=== PATIENT | female | born 1970 | race Caucasian/White ===

== ENCOUNTER 2016-09-27 23:37 | Inpatient (IN) | payer BC ==
[2016-09-28] MEDS ORDERED: Lactated Ringers 1,000 ML IV SCH (00:15)
--- NOTE | 2016-09-28 00:15 | EDM.PDOC ---
ED HPI GI/ABDOMINAL - General Chief Complaint: Abdominal Pain Stated Complaint: STOMACH PAIN Time Seen by Provider: 09/28/16 00:07 Source: Reports: Patient, Family, Old records, RN notes reviewed History Limitations: Reports: No limitations - History of Present Illness INITIAL COMMENTS - FREE TEXT/NARRATIVE: 45-year-old female presents emergency department for a complaint of abdominal pain mainly in the epigastric region she has a known history of Y. gastric bypass pain has been ongoing for the last 2 days denies any fever denies passing gas does have nausea and difficulty keeping any food or water down because of increased pain - Related Data Allergies/ADRs: Allergies Allergy/AdvReac Type Severity Reaction Status Date / Time amoxicillin [Amoxicillin] Allergy Unknown Fever Verified 09/27/16 23:52 meperidine HCl [From Demerol] AdvReac Unknown Nausea and Verified 09/27/16 23:52 Vomiting Home Meds: Home Meds Calcium Carbonate [Calcium] 500 mg PO BID PRN 02/29/16 [History] Cholecalciferol (Vitamin D3) [Vitamin D3] 1,000 unit PO BID 09/27/16 [History] Polyethylene Glycol 3350 [MiraLAX] 17 gm PO DAILY PRN 09/27/16 [History] Sucralfate 1 gm PO BID PRN 09/27/16 [History] Vitamin B Complex [B Complex] 1 tab PO DAILY 09/27/16 [History] Past Medical History Gastrointestinal History: Reports: Cholelithiasis, GERD KAI WHAKARURUHAU History: Reports: - Infectious Disease History Infectious Disease History: Reports: Chicken pox, Shingles - Past Surgical History GI Surgical History: Reports: Cholecystectomy, EGD Other GI Surgeries/Procedures: lap band to rny 2014 Female Surgical History: Reports: section Social & Family History - Tobacco Use Smoking Status *Q: Never Smoker - Caffeine Use Caffeine Use: Reports: Coffee, Energy drinks, Soda, Tea - Alcohol Use Days Per Week of Alcohol Use: 2 Number of Drinks Per Day: 4 Total Drinks Per Week: 8 - Recreational Drug Use Recreational Drug Use: No ED ROS GENERAL - Review of Systems Review Of Systems: See Below Constitutional: Denies: fever, chills Respiratory: Reports: No Symptoms Cardiovascular: Reports: No symptoms GI/Abdominal: Reports: Abdominal pain, Nausea. Denies: Constipation, Diarrhea, Flatus, Vomiting : Reports: no symptoms Musculoskeletal: Reports: no symptoms Skin: Reports: no symptoms Neurological: Reports: No Symptoms ED EXAM, GI/ABD - Physical Exam Exam: See Below Text/Narrative:: General: female, moderate discomfort secondary to abdominal pain, alert and oriented x3 HEENT: head is atraumatic normocephalic, eyes pupils equal round reactive to light and accommodation sclera clear no conjunctivitis appreciated. Ears tympanic membranes clear and tolentino landmarks and light reflex are present bilaterally canals are clear. Nose no septal deviation, nares are clear, no blood present. Mouth mucosa is moist and pink no erythema or exudate noted in soft palate, tongue is midline uvula is midline, dentition is intact. Neck: Supple no thyromegaly no tracheal deviation. Nodes: Cervical nodes subclavicular nodes nontender no palpable lymphadenopathy noted. Lungs: clear to auscultation bilaterally with symmetrical respirations, no adventitious noise appreciated. CV: Regular rate and rhythm S1 and S2 appreciated no murmurs rubs or gallops noted. Abdomen: Soft, markedly tender epigastric region, no palpable masses or organomegaly appreciated, no distention no guarding bowel sounds are present, . Neuro: Cranial nerves II through XII grossly intact Skin: Warm and dry, intact Extremities: No lower extremity edema appreciated, pedal pulse is +2. Course - Vital Signs Last Recorded V/S: Last Vital Signs Temp 97.6 F 09/28/16 00:04 Pulse 87 09/28/16 00:04 Resp 20 09/28/16 00:04 BP 167/120 H 09/28/16 00:04 Pulse Ox 97 09/28/16 00:04 - Orders/Labs/Meds Orders: Active Orders 24 hr Category Date Time Status Peripheral IV Care [RC] . DIRECTED Care 09/28/16 00:13 Active Abdomen Pelvis w Cont [CT] Urgent Exams 09/28/16 00:12 Ordered COMPREHENSIVE METABOLIC PN,CMP [CHEM] Urgent Lab 09/28/16 00:20 Received HCG QUALITATIVE,URINE [URCHEM] Routine Lab 09/28/16 00:12 Uncollected LACTIC ACID [CHEM] Urgent Lab 09/28/16 00:20 Received LIPASE [CHEM] Urgent Lab 09/28/16 00:20 Received UA W/MICROSCOPIC [URIN] Urgent Lab 09/28/16 00:12 Uncollected Iopamidol [Isovue-300 (61%)] Med 09/28/16 00:30 Active 150 ml IV . DIRECTED Lactated Ringers [Ringers, Lactated] 1,000 ml Med 09/28/16 00:15 Active IV ASDIRECTED Sodium Chloride 0.9% [Normal Saline] 80 ml Med 09/28/16 00:30 Active IV ASDIRECTED Sodium Chloride 0.9% [Saline Flush] Med 09/28/16 00:12 Active 10 ml FLUSH ASDIRECTED PRN Peripheral IV Insertion Adult [OM.PC] Urgent Oth 09/28/16 00:12 Ordered Medication Orders Lactated Ringer's (Ringers, Lactated) 1,000 mls @ 500 mls/hr IV ASDIRECTED OLIVIA Last Admin: 09/28/16 00:21 Dose: 500 mls/hr Sodium Chloride (Normal Saline) 80 mls @ 3 mls/sec IV ASDIRECTED OLIVIA Iopamidol (Isovue-300 (61%)) 150 ml IV . DIRECTED OLIVIA Stop: 09/28/16 00:31 Sodium Chloride (Saline Flush) 10 ml FLUSH ASDIRECTED PRN PRN Reason: Keep Vein Open Last Admin: 09/28/16 00:22 Dose: 10 ml Labs: Laboratory Tests 09/28/16 Range/Units 00:20 WBC 5.6 (4.5-11.0) K/uL RBC 4.09 (3.30-5.50) M/uL Hgb 11.3 L (12.0-15.0) g/dL Hct 35.3 L (36.0-48.0) % MCV 86 (80-98) fL MCH 28 (27-31) pg MCHC 32 (32-36) % Plt Count 231 (150-400) K/uL Neut % (Auto) 61 (36-66) % Lymph % (Auto) 27 (24-44) % [place] % (Auto) 11 H (2-6) % Eos % (Auto) 1 L (2-4) % Baso % (Auto) 0 (0-1) % Meds: Medications Generic Name Dose Route Start Last Admin Trade Name Freq PRN Reason Stop Dose Admin Lactated Ringer's 1,000 mls @ 500 mls/hr 09/28/16 00:15 09/28/16 00:21 Ringers, Lactated IV 500 mls/hr ASDIRECTED OLIVIA Administration Sodium Chloride 80 mls @ 3 mls/sec 09/28/16 00:30 Normal Saline IV ASDIRECTED OLIVIA Iopamidol 150 ml 09/28/16 00:30 Isovue-300 (61%) IV 09/28/16 00:31 . DIRECTED OLIVIA Sodium Chloride 10 ml 09/28/16 00:12 09/28/16 00:22 Saline Flush FLUSH 10 ml ASDIRECTED PRN Administration Keep Vein Open Discontinued Medications Generic Name Dose Route Start Last Admin Trade Name Freq PRN Reason Stop Dose Admin Hydromorphone HCl 1 mg 09/28/16 00:23 Dilaudid IVPUSH 09/28/16 00:24 ONETIME ONE Ondansetron HCl 4 mg 09/28/16 00:23 Zofran IVPUSH 09/28/16 00:24 ONETIME ONE Sodium Chloride 10 ml 09/28/16 00:22 Saline Flush FLUSH 09/28/16 00:23 ONETIME ONE Departure - Departure Time of Disposition: 00:27 Disposition: DC/Tfer to [facility] Condition: fair Clinical Impression: Drug-induced confusion, acute Forms: ED Department Discharge Additional Instructions: recommend stopping the fentanyl, stopping the hydrocodone, switch to pain control ibuprofen 4 times a day adding calcitonin nasal spray to help with compression fracture and pain relief, follow up with primary care in 3-5 days for reevaluation - My Orders Last 24 Hours: My Active Orders 09/28/16 00:12 Abdomen Pelvis w Cont [CT] Urgent HCG QUALITATIVE,URINE [URCHEM] Routine UA W/MICROSCOPIC [URIN] Urgent Sodium Chloride 0.9% [Saline Flush] 10 ml FLUSH ASDIRECTED PRN Peripheral IV Insertion Adult [OM.PC] Urgent 09/28/16 00:13 Peripheral IV Care [RC] . DIRECTED 09/28/16 00:15 Lactated Ringers [Ringers, Lactated] 1,000 ml IV ASDIRECTED 09/28/16 00:20 COMPREHENSIVE METABOLIC PN,CMP [CHEM] Urgent LACTIC ACID [CHEM] Urgent LIPASE [CHEM] Urgent 09/28/16 00:30 Iopamidol [Isovue-300 (61%)] 150 ml IV . DIRECTED Sodium Chloride 0.9% [Normal Saline] 80 ml IV ASDIRECTED - Assessment/Plan Last 24 Hours: My Active Orders 09/28/16 00:12 Abdomen Pelvis w Cont [CT] Urgent HCG QUALITATIVE,URINE [URCHEM] Routine UA W/MICROSCOPIC [URIN] Urgent Sodium Chloride 0.9% [Saline Flush] 10 ml FLUSH ASDIRECTED PRN Peripheral IV Insertion Adult [OM.PC] Urgent 09/28/16 00:13 Peripheral IV Care [RC] . DIRECTED 09/28/16 00:15 Lactated Ringers [Ringers, Lactated] 1,000 ml IV ASDIRECTED 09/28/16 00:20 COMPREHENSIVE METABOLIC PN,CMP [CHEM] Urgent LACTIC ACID [CHEM] Urgent LIPASE [CHEM] Urgent 09/28/16 00:30 Iopamidol [Isovue-300 (61%)] 150 ml IV . DIRECTED Sodium Chloride 0.9% [Normal Saline] 80 ml IV ASDIRECTED Plan: Assessment Acuity = acute Site and laterality = confusion with vague abdominal pain complicated by recent starting of narcotics including fentanyl Etiology = suspicious for narcotic side effect Manifestations = none Location of injury = home Lab values = CBC, CMP unremarkable CT scan shows no acute process Plan I did discuss values of CT and lab work with the family also concerned about starting fentanyl in somebody who is narcotic yazmin with the history of no bowel movement in 5 days increased confusion I believe this is related to medications therefore recommend stopping the fentanyl stopping the hydrocodone starting ibuprofen and calcitonin for her compression fractures follow up with primary care in 3-5 days for reevaluation son was in agreement with the plan all questions were answered, they were instructed to return to the emergency department or call for worsening symptoms. This note was dictated using [employer] voice recognition software please call with any questions.
[2016-09-28] MEDS ORDERED: Sodium Chloride 0.9% 10 ML Syringe FLUSH ONE (00:22)
[2016-09-28] MEDS: Sodium Chloride 0.9% 10 ML Syringe FLUSH PRN ×2 (00:22→00:51)
[2016-09-28] MEDS ORDERED: HYDROmorphone 1 MG/ML Syringe IVPUSH ONE ×2 (00:23→00:53)
[2016-09-28] MEDS ORDERED: Ondansetron 4 MG/2 ML SDV IVPUSH ONE (00:23)
[2016-09-28] MEDS ORDERED: Sodium Chloride 0.9% 80 ML IV SCH (00:30)
[2016-09-28] MEDS ORDERED: Iopamidol 612 MG/ML 150 ML Bottle IV SCH (00:30)
[2016-09-28] MEDS ORDERED: fentaNYL 100 MCG/2 ML SDV IVPUSH ONE (01:50)
[2016-09-28] MEDS ORDERED: fentaNYL 100 MCG/2 ML SDV IVPUSH PRN ×2 (02:32→14:22)
[2016-09-28] MEDS: Dextrose 5%-Lactated Ringers 1,000 ML IV SCH ×3 (02:48→23:43)
[2016-09-28] MEDS: Ondansetron 4 MG/2 ML SDV IVPUSH PRN ×2 (02:50→07:12)
[2016-09-28] MEDS ORDERED: Pantoprazole 40 MG Vial IVPUSH SCH (03:00)
--- NOTE | 2016-09-28 08:53 | PCM.HP ---
H&P History of Present Illness - General Date of Service: 09/28/16 Admit Problem/Dx: Admission Diagnosis/Problem Admission Diagnosis/Problem Small bowel obstruction Source of Information: Patient History Limitations: Reports: No limitations - History of Present Illness Initial Comments - Free Text/Narative: Angelica states she started to have pain and constipation on 10/01/16 Her symptoms increasing have gotten worse. She states pain is in the mid abdomen and radiates through to her back. Associated with nausea. Aggravated by eating. Last night she had no relief of the pain and came to the ED Onset of Symptoms: Reports: gradual Duration of Symptoms: Reports: Day(s):, Getting worse Location: Reports: abdomen Quality: Reports: Sharp, Stabbing Severity: severe Improves with: Reports: None (until she had 2 doses of Dilaudid IV and 1 dose of Fentanyl) Worsens with: Reports: Eating Context: Reports: sick contact Associated Symptoms: Reports: loss of appetite (constipation and nausea) abd Pain Score (Numeric/FACES): 3 - Related Data Allergies/Adverse Reactions: Allergies Allergy/AdvReac Type Severity Reaction Status Date / Time amoxicillin [Amoxicillin] Allergy Unknown Fever Verified 09/27/16 23:52 meperidine HCl [From Demerol] AdvReac Unknown Nausea and Verified 09/27/16 23:52 Vomiting Home Medications: Home Meds Calcium Carbonate [Calcium] 500 mg PO BID PRN 02/29/16 [History] Cholecalciferol (Vitamin D3) [Vitamin D3] 1,000 unit PO BID 09/27/16 [History] Polyethylene Glycol 3350 [MiraLAX] 17 gm PO DAILY PRN 09/27/16 [History] Sucralfate 1 gm PO BID PRN 09/27/16 [History] Vitamin B Complex [B Complex] 1 tab PO DAILY 09/27/16 [History] Past Medical History Gastrointestinal History: Reports: Cholelithiasis, GERD [employer]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: - Infectious Disease History Infectious Disease History: Reports: Chicken pox, Shingles - Past Surgical History GI Surgical History: Reports: Cholecystectomy, EGD Other GI Surgeries/Procedures: lap band to rny 2014 Female Surgical History: Reports: section Social & Family History - Tobacco Use Smoking Status *Q: Never Smoker - Caffeine Use Caffeine Use: Reports: Coffee, Energy drinks, Soda, Tea - Alcohol Use Days Per Week of Alcohol Use: 2 Number of Drinks Per Day: 4 Total Drinks Per Week: 8 - Recreational Drug Use Recreational Drug Use: No H&P Review of Systems - Review of Systems: Review Of Systems: See Below General: Reports: fatigue HEENT: Reports: no symptoms Pulmonary: Reports: No Symptoms Cardiovascular: Reports: no symptoms Gastrointestinal: Reports: Abdominal pain, Constipation Genitourinary: Reports: no symptoms Musculoskeletal: Reports: no symptoms Skin: Reports: no symptoms Psychiatric: Reports: no symptoms Neurological: Reports: No Symptoms Hematologic/Lymphatic: Reports: no symptoms Immunologic: Reports: no symptoms Exam - Exam Exam: See Below - Vital Signs Vital Signs: Last Vital Signs Temp 97.9 F 09/28/16 07:44 Pulse 87 09/28/16 07:44 Resp 18 09/28/16 07:44 BP 138/99 H 09/28/16 07:44 Pulse Ox 96 09/28/16 03:05 Weight: 185 lb 10.067 oz - Exam Quality Assessment: DVT prophylaxis General: moderate distress HEENT: PERRLA Neck: supple, trachea midline Lungs: Clear to auscultation, Normal respiratory effort Cardiovascular: regular rate, regular rhythm Abdomen: guarding, tenderness (mid abdominal area ) (Female) Exam: Deferred Rectal (Female) Exam: Deferred Back Exam: normal inspection Extremities: normal inspection Skin: warm, dry, intact Neurological: cranial nerves intact Neuro Extensive - Mental Status: oriented x3 Neuro Extensive - Motor, Sensory, Reflexes: CN II-XII intact Psychiatric: normal affect (for having pain ) - Patient Data Result Diagrams: 09/28/16 00:20 09/28/16 00:20 *Q Meaningful Use (ADM) - VTE *Q VTE Criteria *Q: - Stroke *Q Stroke Criteria *Q: - AMI *Q AMI Criteria *Q: Problem List Initiated/Reviewed/Updated: Yes Orders Last 24hrs: Active Orders 24 hr Category Date Time Status Admission Status [Patient Status] [ADT] Routine ADT 09/28/16 02:00 Active Activity as Tolerated [RC] .Routine Care 09/28/16 02:31 Active Intake and Output [RC] ASDIRECTED Care 09/28/16 02:35 Active Notify Provider Consults [RC] ASDIRECTED Care 09/28/16 07:35 Active Vital Signs [RC] PER UNIT ROUTINE Care 09/28/16 02:31 Active Consult to Physician [CONS] Urgent Cons 09/28/16 07:34 Ordered Nothing per Oral Now Diet [DIET] Diet 09/28/16 Breakfast Active Dextrose 5%-Lactated Ringers 1,000 ml Med 09/28/16 02:45 Active IV ASDIRECTED Ondansetron [Zofran] Med 09/28/16 02:32 Active 4 mg IVPUSH Q4H PRN Pantoprazole [Protonix IV] Med 09/28/16 03:00 Active 40 mg IVPUSH Q24H fentaNYL [Sublimaze] Med 09/28/16 02:32 Active 100 mcg IVPUSH Q4H PRN Sequential Compression Device [OM.PC] Routine Oth 09/28/16 02:35 Ordered Medication Orders Fentanyl (Sublimaze) 100 mcg IVPUSH Q4H PRN PRN Reason: Pain Dextrose/Lactated Ringer's (Dextrose 5%-Lactated Ringers) 1,000 mls @ 100 mls/ hr IV ASDIRECTED [facility] Last Admin: 09/28/16 02:48 Dose: 100 mls/hr Ondansetron HCl (Zofran) 4 mg IVPUSH Q4H PRN PRN Reason: Nausea/Vomiting Last Admin: 09/28/16 07:12 Dose: 4 mg Admin: 09/28/16 02:50 Dose: 4 mg Pantoprazole Sodium (Protonix Iv) 40 mg IVPUSH Q24H [facility] Last Admin: 09/28/16 02:55 Dose: 40 mg Assessment/Plan Comment:: Partial Small Bowel Obstruction Plan: Admit to hospital as inpatient See copy of orders. Say Moralez was consulted by phone and briefed on patient at 6:47 am Patient will have surgery with expected hospital stay 2 nighs and 3 days Candis Niño
[2016-09-28] MEDS ORDERED: fentaNYL 250 MCG/5 ML SDV ONE ×2 (12:34→13:38)
[2016-09-28] MEDS ORDERED: Dexamethasone 4 MG/ML SDV ONE (12:34)
[2016-09-28] MEDS ORDERED: Neostigmine Methylsulfate 1 MG/ML 5 ML Syringe ONE (12:34)
[2016-09-28] MEDS ORDERED: Midazolam 1 MG/ML 2 ML SDV ONE (12:34)
[2016-09-28] MEDS ORDERED: Succinylcholine/Normal Saline 200 MG/10 ML Syringe ONE (12:34)
[2016-09-28] MEDS ORDERED: Rocuronium 50 MG/5 ML Vial ONE (12:34)
[2016-09-28] MEDS ORDERED: Propofol 200 MG/20 ML SDV ONE (12:34)
[2016-09-28] MEDS ORDERED: Ondansetron 4 MG/2 ML SDV ONE (12:34)
[2016-09-28] MEDS ORDERED: Bupivacaine 0.5%/EPINEPHrine 1:200,000 50 ML MDV ONE (12:41)
[2016-09-28] MEDS ORDERED: Ketorolac 60 MG/2 ML SDV ONE (12:50)
--- NOTE | 2016-09-28 12:54 | CONS ---
DATE OF SERVICE: 09/28/2016 REFERRING PHYSICIAN: CONSULTING PHYSICIAN: Say Moralez MD REASON FOR CONSULTATION: Evaluation of abdominal pain. HISTORY: This is a 45-year-old female with approximately 1-week history of abdominal pain. This started around Saturday to Saturday. The pain is not intensified but remains a 1/10 to 2/10. This has resulted in some recent constipation. The patient had a laparoscopic band placed initially, and this was converted to a Claudio-en-Y in 06/2014. The patient underwent recent EGD, was apparent though, but has done well aside from these two events. PAST MEDICAL HISTORY: Significant only for morbid obesity. PAST SURGICAL HISTORY: Claudio-en-Y as described above, x2, lap-jania. SOCIAL HISTORY: She is not a smoker. FAMILY HISTORY: No family history of colorectal cancer or anything else of concern. REVIEW OF SYSTEMS: GENERAL: The patient has been doing well/from this recent episode. HEENT: No symptoms. CARDIOVASCULAR: No history of myocardial infarction. RESPIRATORY: No shortness of breath. GASTROINTESTINAL: As above. GENITOURINARY: No dysuria. NEUROLOGIC: No symptoms. PSYCHIATRIC: No symptoms. The remainder of review of systems reviewed and is negative. PHYSICAL EXAMINATION: VITAL SIGNS: Stable. GENERAL: The patient is resting quite comfortably. Is very appropriate for her condition. HEENT: Pupils are equal. NECK: Supple. CARDIOVASCULAR: Regular rhythm and rate. RESPIRATORY: Lungs are clear to auscultation bilaterally. ABDOMEN: Very minimal pain with palpation. No rebound. No guarding. No distention. Very mild pain in mid abdomen with deep palpation. LABORATORY RESULTS: Show a normal white blood cell count, hemoglobin 11.3. Basic metabolic panel is essentially normal. IMAGING: I did review the CT scan, which suggest the possibility of an internal hernia versus slight torsion of her mesentery. This does not show any evidence of ischemia, did not show any abnormal flow, did not show any evidence of bowel obstruction. ASSESSMENT AND PLAN: Abdominal pain. The patient was taken to the operating room for a diagnostic laparoscopy, possible reduction of her internal hernia. We also discussed the possibility of open surgery, bowel resection, and now is not listed here. The patient understands this plan. We also discussed the risks, benefits, alternatives, and limitations, including, but not limited to infection, bleeding, perforation, leaks, and other risks not listed here. Say Moralez MD /[id number]
[2016-09-28] MEDS ORDERED: metroNIDAZOLE/Normal Saline 500 MG in Premix Bag 1 BAG IV ONE (13:00)
[2016-09-28] MEDS ORDERED: Ciprofloxacin in D5W 400 MG in Premix Bag 1 BAG IV ONE ×2 (13:00)
[2016-09-28] MEDS ORDERED: Lactated Ringers 1,000 ML ONE (13:08)
[2016-09-28] MEDS ORDERED: diphenhydrAMINE 50 MG/ML SDV IVPUSH PRN (14:19)
[2016-09-28] MEDS ORDERED: Acetaminophen/oxyCODONE 325-10 MG Tab PO PRN (14:19)
[2016-09-28] MEDS ORDERED: Benzocaine/Cetylpyridinium/Menthol Lozenge MUCMEM PRN (14:19)
[2016-09-28] MEDS ORDERED: Docusate Sodium 100 MG Cap PO PRN (14:19)
[2016-09-28] MEDS ORDERED: Zolpidem 5 MG Tab PO PRN (14:19)
[2016-09-28] MEDS ORDERED: hydrOXYzine HCl 50 MG/ML SDV IM PRN (14:27)
[2016-09-29 06:22] VITALS: BP 128/68
[2016-09-29] MEDS ORDERED: Pantoprazole 40 MG Tab.CR PO SCH (09:00)
[2016-09-29] MEDS ORDERED: Enoxaparin 40 MG/0.4 ML Syringe SUBCUT SCH (09:00)
--- NOTE | 2016-09-29 10:11 | PN ---
DATE OF SERVICE: 09/29/2016 SUBJECTIVE: The patient is doing very well today. Pain is well controlled. No nausea, vomiting, shortness of breath, or chest pain. She is passing a large amount of gas. OBJECTIVE: VITAL SIGNS: Temperature is 98.8, blood pressure 128/68, pulse 64, respirations 16, and O2 sats 97% on room air. CARDIOVASCULAR: Regular rhythm and rate. RESPIRATORY: Lungs clear to consultation bilaterally. ABDOMEN: Bowel sounds positive. Incision is healing well. No rebound or guarding. LABORATORY RESULTS: Show normal white blood cell count and normal basic metabolic panel. ASSESSMENT: Status post repair of internal hernia. PLAN: The patient will be discharged today. Please see discharge instructions for further details. Say Moralez MD /[id number]
--- NOTE | 2016-09-29 10:23 | DISCH ---
DISCHARGE DIAGNOSIS: Status post internal hernia repair, laparoscopic. SUMMARY OF HOSPITAL COURSE: This is a pleasant 45-year-old female, who was seen in the emergency room, was noted to have an internal hernia. This was diagnosed via CT scan. The patient on 09/28/2016 underwent a laparoscopic repair of internal hernia. This went well. On postoperative day one, the patient's pain is well controlled on ibuprofen only. No nausea, vomiting, shortness of breath, or chest pain. She is passing gas and request to be discharged. FOLLOWUP: Follow up with Surgery in 7 to 14 days. DISCHARGE INSTRUCTIONS: She is to return to the emergency room if she develops any signs and symptoms of leaks or other complications, which we did review. DISCHARGE MEDICATIONS: The patient is taking ibuprofen only and she will be discharged with this or pain medication. ACTIVITY: As tolerated, except no lifting greater than 30 pounds times 30 days.
--- NOTE | 2016-10-01 13:15 | OR ---
DATE OF PROCEDURE: 09/28/2016 PROCEDURE: 1. Reduction of internal hernia (66099). 2. Closure of mesenteric defect (66630). COMPLICATION: None. COTTON CLEANER: None. FINDINGS: Internal hernia due to previous gastric bypass surgery. ANESTHESIA: General/local. PREOPERATIVE DIAGNOSIS: Internal hernia. POSTOPERATIVE DIAGNOSIS: Internal hernia. Risks, benefits, alternatives, and limitations, including, but not to infection, bleeding, perforation to abdominal structures, fistula formation, requirement for open surgery, abscess formation, and other risks were explained to the patient and wished to proceed. PROCEDURE IN DETAIL: The patient was placed in supine position slightly to the right of the midline and about the level of the umbilicus. A 12 mm incision was made. A Veress needle was used to enter the abdomen without abnormality. A drop test was performed without abnormality. The abdomen was insufflated without difficulty. This was then followed by an Optiview trocar. An additional 10 and a 5 mm ports were then entered under direct visualization. The bowel was then ran in a retrograde fashion from the ileocecal valve. This allowed decompression of the internal hernia. The bowel itself was noted to have lymphatic congestion. However, there was no evidence of ischemia or necrosis. After the reduction of internal hernia, the bowel significantly improved. One this was reduced, the bowel was run in its entirety a second time. No other abnormalities noted. The mesenteric defect was readily identified. This was then closed with interrupted Tycron sutures. A 10 mm Tisseel was also placed within the defect. There were also two areas of serosal tear during this process. These were approximated in a Heineke-Mikulicz type fashion using interrupted Tycron sutures. Of note, this was not full thickness rent or the defect. This was felt due to the sofy noted on one of the clamps. After this, the rest of the abdomen was inspected without abnormality. The air was removed. The wounds were closed with 3-0 Vicryl and 4-0 Vicryl, around in an interrupted and running fashion after Dermabond and after thorough irrigation. Dermabond was applied. The patient tolerated the procedure well. Local anesthetic of 50 mL injected to the wounds. Say Moralez MD /[id number]
== END 2016-09-29 10:11 | disposition home or self-care (01) | DRG 227 ==
LOC: JP.ED 23:37 → JP.ICU 09-28 02:00
PROVIDERS: ADMIT Physician Assistant Medical; ATTEND Physician Assistant Medical
PROC: 0WQF4ZZ Repair Abdominal Wall, Percutaneous Endoscopic Approach (ICD-10-PCS; principal; 2016-09-28)
PROC: 0DQV4ZZ Repair Mesentery, Percutaneous Endoscopic Approach (ICD-10-PCS; principal; 2016-09-28)
DX: K46.9 Unspecified abdominal hernia without obstruction or gangrene (principal); Z98.84 Bariatric surgery status; Z98.0 Intestinal bypass and anastomosis status; Z88.1 Allergy status to other antibiotic agents; Z88.8 Allergy status to other drugs, medicaments and biological substances; K92.89 Other specified diseases of the digestive system
CPT/HCPCS: 36415; 74177; 80048; 80053; 81001; 81025; 83605; 83690; 85025; 96361; 96374; 96375; 96376; 99285-25; C9113; J0744; J1100; J1170; J1885; J2250; J2405; J2704; J3010; J3410; J7030; J7042; J7050; J7120

== ENCOUNTER 2016-11-23 15:27 | Inpatient (IN) | payer BC ==
[2016-11-23] MEDS ORDERED: Naloxone 0.4 MG/ML SDV IV PRN (15:43)
[2016-11-23] MEDS ORDERED: HYDROmorphone/Normal Saline 15 MG/30 ML PCA IV PRN (15:43)
[2016-11-23] MEDS ORDERED: Ondansetron 4 MG/2 ML SDV IVPUSH PRN (15:46)
[2016-11-23] MEDS ORDERED: MVI, Adult with Vitamin K 10 ML, Chromium/Copper/Mang/Selen/Zn 1 ML, Thiamine 100 MG in... IV ONE ×4 (17:00)
[2016-11-23] MEDS: Pantoprazole 40 MG Vial IV SCH (17:28)
[2016-11-23] MEDS: Dextrose 5%-Lactated Ringers 1,000 ML IV SCH (20:24)
[2016-11-23] MEDS ORDERED: Scopolamine 1.5 MG Transdermal Patch TRDERM SCH (20:30)
[2016-11-23] MEDS ORDERED: Prochlorperazine 10 MG in Sodium Chloride 0.9% 50 ML IV PRN (20:34)
[2016-11-24] MEDS: Dextrose 5%-Lactated Ringers 1,000 ML IV SCH ×2 (04:34→14:06)
[2016-11-24] MEDS ORDERED: Bupivacaine 0.5%/EPINEPHrine 1:200,000 50 ML MDV ONE (05:49)
[2016-11-24] MEDS ORDERED: Meropenem 500 MG SDV ONE (05:49)
[2016-11-24] MEDS ORDERED: fentaNYL/Normal Saline 600 MCG/30 ML PCA Vial IV SCH (06:30)
[2016-11-24] MEDS ORDERED: fentaNYL 250 MCG/5 ML SDV ONE (07:19)
[2016-11-24] MEDS ORDERED: Midazolam 1 MG/ML 2 ML SDV ONE (07:19)
[2016-11-24] MEDS ORDERED: Ondansetron 4 MG/2 ML SDV ONE (07:20)
[2016-11-24] MEDS ORDERED: Rocuronium 50 MG/5 ML Vial ONE (07:20)
[2016-11-24] MEDS ORDERED: Succinylcholine/Normal Saline 200 MG/10 ML Syringe ONE (07:20)
[2016-11-24] MEDS ORDERED: Propofol 200 MG/20 ML SDV ONE (07:20)
[2016-11-24] MEDS ORDERED: Dexamethasone 4 MG/ML SDV ONE (07:20)
[2016-11-24] MEDS ORDERED: Neostigmine Methylsulfate 1 MG/ML 5 ML Syringe ONE (07:20)
[2016-11-24] MEDS ORDERED: cefOXitin 2 GM in Sodium Chloride 0.9% 50 ML IV ONE (08:00)
[2016-11-24] MEDS ORDERED: VERIFY SCOP PATCH TOP SCH (09:00)
[2016-11-24] MEDS ORDERED: Lactated Ringers 1,000 ML ONE (09:21)
[2016-11-24] MEDS ORDERED: hydrOXYzine HCl 50 MG/ML SDV IM ONE (09:50)
[2016-11-24] MEDS ORDERED: hydrOXYzine HCl 50 MG/ML SDV IM PRN (10:50)
[2016-11-24] MEDS ORDERED: Labetalol 20 MG/4 ML Syringe IVPUSH PRN (10:50)
[2016-11-24] MEDS ORDERED: Metoclopramide 10 MG/2 ML SDV IV PRN (10:54)
[2016-11-24] MEDS ORDERED: diphenhydrAMINE 50 MG/ML SDV IV PRN (10:55)
[2016-11-24] MEDS ORDERED: Iron Sucrose Complex 500 MG in Sodium Chloride 0.9% 250 ML IV ONE (14:00)
[2016-11-24] MEDS: cefOXitin 2 GM in Sodium Chloride 0.9% 50 ML IV SCH ×2 (14:11→19:43)
[2016-11-24] MEDS ORDERED: MVI, Adult with Vitamin K 10 ML, Thiamine 200 MG, Chromium/Copper/Mang/Selen/Zn 1 ML in... IV SCH ×4 (16:00)
[2016-11-24] MEDS: Heparin Sodium 5,000 Units/ML Vial SUBCUT SCH (18:06)
[2016-11-24] MEDS: Pantoprazole 40 MG Vial IV SCH (18:06)
[2016-11-25] MEDS: Dextrose 5%-Lactated Ringers 1,000 ML IV SCH (00:36)
[2016-11-25] MEDS ORDERED: Iohexol 647 MG/ML 50 ML SDV PO SCH (01:30)
[2016-11-25] MEDS: cefOXitin 2 GM in Sodium Chloride 0.9% 50 ML IV SCH (01:47)
[2016-11-25] MEDS ORDERED: Iron Sucrose Complex 500 MG in Sodium Chloride 0.9% 250 ML IV ONE (05:00)
[2016-11-25] MEDS: Heparin Sodium 5,000 Units/ML Vial SUBCUT SCH (05:22)
[2016-11-25 07:22] VITALS: BP 142/87
[2016-11-25] MEDS ORDERED: Acetaminophen/oxyCODONE 325-5 MG Tab PO PRN (07:58)
[2016-11-26] MEDS ORDERED: Cyanocobalamin (Vitamin B12) 1,000 MCG/ML SDV IM ONE (09:00)
--- NOTE | 2016-11-26 09:39 | CR ---
UGI wo KUB HISTORY: eval rev JJ, resect. volvulus FINDINGS: Limited upper GI series was obtained without fluoroscopy. Water-soluble contrast was admin istered orally. Immediate along with 15 minute delayed images were obtained. Small gastric pouch is demonstrated. Contrast passes readily through the gastrojejunostomy into loops of jejunum. No obstru ction is identified. There is no contrast extravasation. Surgical clips are noted right upper quadra nt consistent with prior cholecystectomy. IMPRESSION: No postoperative complication is identified. No contrast extravasation or signs of obstr uction.
--- NOTE | 2016-11-27 13:15 | HP ---
The patient will be admitted to [facility]. ADMISSION DIAGNOSES: 1. Partial small bowel obstruction. 2. Status post Claudio-en-Y gastric bypass surgery, 07/02/2014. 3. Unspecified surgical malabsorption. 4. B12 deficiency. CURRENT MEDICATIONS: Multivitamin one a day, Womens Petites. ALLERGIES: DEMEROL, WHICH CAUSES NAUSEA AND VOMITING, AND AMOXICILLIN. PAST MEDICAL HISTORY: Esophageal reflux, SP lap band with intolerance. PAST SURGICAL HISTORY: Laparoscopic lap band 02/28/2007 at [place]. Consult weight 292. Claudio-en-Y gastric bypass surgery with removal of lap band on 07/02/2014. Laparoscopic reduction of internal hernia and closure of mesenteric defect, date of surgery 09/28/2016, Say Moralez MD. Cholecystectomy and section. SOCIAL HISTORY: Smoking, not applicable. Caffeine, drinks coffee. Energy drinks, soda and tea. Alcohol, drinks 2-3 glasses of wine three times a week. Recreational drugs, negative. 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 Children, two daughters. FAMILY HISTORY: Positive for obesity and negative for any heart, lungs, or kidney diseases. REVIEW OF SYSTEMS: Reports weight loss of 48.6 pounds since her Claudio-en-Y gastric bypass surgery, and for a total of 110.6 pounds since her lap band in 2006. She has had no fever, chills, night sweats, or fatigue. Eyes; negative, wears corrective lenses for nearsightedness. HEENT: Negative. CARDIOVASCULAR: No chest pain, murmur, fast or irregular heart beat. LUNGS: No shortness of breath or cough. MUSCULOSKELETAL: No joint pain or swelling. SKIN AND BREASTS: Negative. NEURO: No headaches, dizziness, loss of coordination. PSYCHIATRIC: Negative for anxiety, depression, or insomnia. ENDOCRINE: No fatigue, excessive thirst or urination. HEMOLYTIC/LYMPHATIC: No abnormal bleeding, bruising, or lymph node enlargement. Remainder of review of systems negative for any pertinent positives and negatives. CHIEF COMPLAINT: Angelica reports on Saturday11/16/2016, she developed low back pain. The next day, she ate solid food. She said the pain was in her midepigastric area. It radiated around her back. She reports this lasted for 2 hours. She had to lay down in a position. The pain was a 10/10. It was associated with burping. She states she has to strain to have bowel movements. They are in small amounts, but soft; pain is sharp, stabbing, squeezing, and twisting. She did not eat any solid foods from 11/18 till 11/21 and she ate a little bit on 11/21/2016. She developed another attack states where she had to puller over on the side of the road until it passed. She states that it will be associated with nausea, but she is unable to throw up after her Claudio-en-Y gastric bypass surgery, she will burp per frequently and become quite bloated. REVIEW OF SYSTEMS: Remainder of review of systems negative for any pertinent positives and negatives. OBJECTIVE: GENERAL: Angelica Ward is a 45-year-old female. Pale in no acute distress. VITAL SIGNS: TPR 98.3, 78, 16, and blood pressure 122/78. Height 64.1 inches, weight 181.4, pain scale 1 to 10 as a 2/10. BMI 31.04, total weight loss is 110.6. HEENT: Pupils equal, round, and reactive to light and accommodation. Oral mucosa pink and moist. TMs are negative. NECK: Supple. Negative lymphadenopathy and thyromegaly. LUNGS: Clear to auscultation in all four lott. No wheezing, rales, or rhonchi. HEART: Regular rate and rhythm without murmur, gallop, or rub. EXTREMITIES: Without edema. BREASTS: Deferred. ABDOMEN: Midepigastric tenderness that radiates to the right of the periumbilical area, soft, and no bloating is noted. GENITOURINARY: Deferred. NEUROLOGIC: Cranial nerves 2-12 intact. Deep tendon reflexes are 2+ equal, bilaterally. MUSCULOSKELETAL: Equal muscle strength in upper and lower extremities bilaterally, full range of motion psychiatric judgment, insight, orientation to time, recent and remote memory, mood and affect appropriate. LABORATORY DATA: Check CBC, CMP, Mag, B12, folate, ferritin, vitamin D, and vitamin B1. Check CT of abdomen and pelvis with IV and oral contrast. ASSESSMENT: 1. Partial small bowel obstruction. 2. SP Claudio-en-Y gastric bypass surgery. 3. Unspecified surgical malabsorption. 4. B12 deficiency. 5. Weight loss. 6. Noncompliance with vitamin regime after Claudio-en-Y gastric bypass surgery. PLAN: 1. Admit to [address] [place] [address], inpatient. Franky Hunt MD Diagnosis; small bowel volvulus. 2. Vital signs every 4 hours. 3. Activity: Ad beata. Ambulate to tolerance q.i.d. 4. SCDs while in bed. 5. Check ferritin and phosphorus. 6. IV LR 1 L with multivitamins trace elements, 100 mg thiamine to run over 4 hours. Then D5 LR at 125 mg per 5 mL. 7. Dilaudid MEDICAL CODING SPECIALIST with settings 0.3 mg demand dose, lockout. 8. Notify physician, respiratory rate less than 12. 9. Rx Protonix 40 mg IV piggyback daily, may have small amounts of clear liquids today and n.p.o. after midnight. Schedule have consent signed for laparoscopy possible laparotomy with release of small bowel obstruction and possible small-bowel resection. 10.Cefoxitin 2 g IV piggyback air conditioner installer helper to OR. Candis Blanc PA-C /[id number]
--- NOTE | 2016-11-27 14:06 | HP ---
HISTORY OF PRESENT ILLNESS: This is a 45-year-old status post Claudio-en-Y gastric bypass, that being converted from a gastric band status in June of 2014. She had a small bowel volvulus and internal hernia treatments laparoscopically per Dr. Moralez on 09/28/2016. She now presents with crampy abdominal pain, particularly in the postprandial period and was set up for a CT scan done earlier today which was consistent with recurrent small-bowel volvulus. The patient has been ill for 3 to 4 days and has been having relatively poor oral intake. Given the fact that she is comfortable in not eating, we will admit the patient for IV hydration and plan to proceed with surgical correction of the problem tomorrow. PAST MEDICAL HISTORY: The patient's past medical history includes bariatric surgery status, as noted above. Morbid obesity, now resolved; gastroesophageal reflux, now resolved, history of gestational diabetes. PAST SURGICAL HISTORY: Surgical history is as noted above. MEDICATIONS: Only multivitamins. ALLERGIES: DEMEROL AND AMOXICILLIN. SOCIAL HISTORY: The patient is a nonsmoker, drinks socially. FAMILY HISTORY: Noncontributory. REVIEW OF SYSTEMS: Negative other than for the recent GI symptoms. PHYSICAL EXAMINATION: GENERAL: The patient was comfortable appearing and has been n.p.o. for a period of time. VITAL SIGNS: She is afebrile. Stable vital signs. HEENT: Unremarkable. HEART: Regular rhythm. Normal S1 and S2. LUNGS: Clear. BREASTS: Exam is deferred. ABDOMEN: Shows some mild distention and a sense of fullness in the left mid abdomen consistent with what we typically see with small bowel volvulus, has been minimally tender. VULVA AND RECTAL: Deferred. LABORATORY DATA: Laboratory exam is pending. Review of the CT scan did shows the mesenteric swelling consistent with a small bowel volvulus, no AGAPITO luminal obstruction and the superior mesenteric vein and artery appeared to be non obstructed. IMPRESSION: A small bowel volvulus. Most likely once again through the mesenteric defect underlying the jejunojejunostomy. PLAN: Plan is to proceed with hydration and then proceed with diagnostic laparoscopy, laparotomy if necessary, and reduction of small bowel volvulus with bowel resection as indicated. With this being a recurrent volvulus, if we are not getting a good visualization of the mesenteric defect, we might detach that anastomosis and reconstitute the jejunojejunostomy somewhat more distally, which would make the new mesenteric defect much easier to visualize and therefore, if we do detach the small bowel, we will hook her up somewhat more distally. She is still mildly overweight, but this would not be an overly aggressive change, probably giving her a common limb in the range of 250 cm. Potential risks including bleeding, infection, injury to underlying viscera, possible more frequent loose bowel movements with the distalization of the small bowel anastomosis. All were reviewed with the patient and she wishes to proceed. Surgery will be planned for tomorrow morning. Franky Hunt MD /[id number]
--- NOTE | 2016-11-27 14:16 | OR ---
DATE OF PROCEDURE: 11/24/2016 PREOPERATIVE DIAGNOSIS: Recurrent small bowel volvulus. POSTOPERATIVE DIAGNOSES: 1. Small bowel volvulus with inability to visualize jejunojejunal mesenteric defect. 2. Marked intra-abdominal adhesions. PROCEDURES PERFORMED: Diagnostic laparoscopy with lysis of adhesions and: 1. Reduction of small bowel volvulus and closure of mesenteric defect (832601). 2. Small bowel resection (82383). 3. Placement of Interceed mesh to displace small bowel from pelvic and abdominal márquez to limit recurrent adhesion formation. ANESTHESIA: IV sedation. INDICATION FOR PROCEDURE: Please see preoperative discussion on admission history and physical dictated yesterday. PROCEDURE IN DETAIL: The patient was taken to the operating room. After general endotracheal anesthesia was induced, she was placed in a lithotomy position. Roque catheter was inserted, and the abdomen prepped and draped. In the left lower quadrant, a transverse incision was made and the peritoneal cavity entered under direct vision with an Optiview trocar, inflated to 15 mmHg pressure with CO2. Laparoscope was then reinserted. No underlying trocar insertion site injuries were seen. Following this, two 5 mm trocars were placed; one on the right, and one on the left abdomen. The small bowel was then identified near the gastrojejunostomy and traced downward. As one traces further downward, it descended into the area of the mesenteric defect between the 2 limbs of the small bowel at the jejunojejunostomy, confirming that there was a small bowel volvulus through that defect. At this point, attention was then taken to the ileocecal valve. Once this was identified, the small bowel was progressively manipulated, and eventually, the cecal volvulus was totally reduced. The bowel had initially some minor venous congestion, but otherwise, upon its reduction, appeared to be entirely viable. The area in the mesenteric defect laparoscopically was quite difficult to expose, and given this, rather than converting to an open procedure, decision was made to detach the small bowel at the point where the Claudio limb entered the jejunojejunostomy and then reanastomosed somewhat further distally which would allow some increased weight loss over time as well as allow a closure of the mesenteric defect newly created which would be easily visualized and therefore closed more satisfactorily. At this point, two 12 mm trocars were placed on the left abdomen, and one additional 5 mm trocar was placed in the epigastrium. The small bowel was then identified at the point where it entered the jejunojejunostomy from the Claudio limb angle and divided there with a AGAPITO finley load. Some of the small bowel underlying this was somewhat ischemic, and a small segment of the small bowel consisting of the Claudio limb was then divided after division of a little bit more of the mesentery with Harmonic scalpel as the small-bowel specimen was then delivered from the field. The ileocecal valve was once again identified and then traced out in this case to 150 cm proximal to the ileocecal valve. This would be fairly distal and should likely result in some weight loss and improvement of the patient's metabolic state, but not to the extent that she would have overly frequent bowel movements or be at risk for significant protein- calorie malnutrition. The Claudio limb was then mapped out once again, and this was noted to be 130 cm. Therefore, again the Claudio limb in this case to be 130 cm and the common limb 250 cm. At that level, the [id number] enteroenterostomy was accomplished with [id number] anastomosis. This consisted of 2 internal firings of the Endo-AGAPITO finley load, and the common opening then closed transversely with the purple load. The anastomosis was then reinforced with some 0 Ethibond stitch. The mesenteric defect was then easily visualized from the left side of the abdomen and completely closed with a series of 0 Ethibond sutures. The last stitch should be sutured this down from the underlying mesentery which completely close off that mesenteric defect. At this point, the abdomen was irrigated and inspected. No further problems were noted. The patient had quite a bit in the way of adhesions noted initially which were taken down, and to prevent adhesions between the area of the new anastomosis as well as remainder of the small bowel between the abdomen and pelvis, a portion of the Interceed mesh was placed. This was placed over the anastomosis and then further downward toward the pelvis. At that point, the abdomen was irrigated with meropenem-containing saline solution. The trocars were then sequentially removed. The 12 mm sites were closed with 0 Vicryl stitch at the fascia level, and the skin with 4-0 Vicryl skin stitch. Dressing was applied. The patient was taken to the recovery room in satisfactory condition. Franky Hunt MD /[id number]
--- NOTE | 2016-11-27 14:43 | DISCH ---
FINAL DIAGNOSES: 1. Small bowel volvulus with inability to visualize jejunojejunal mesenteric defect. 2. Extensive intraabdominal adhesions. 3. Iron deficiency status. 4. Bariatric surgery status. OPERATIVE PROCEDURE: This was done on 11/24/2016; diagnostic laparoscopy with lysis of adhesions, 1. Reduction of small bowel volvulus and closure of mesenteric defect. 2. Small bowel resection. 3. Placement of Interceed mesh to limit recurrent small-bowel adhesion formation to pelvic and abdominal wall. HOSPITAL COURSE: This is a 45-year-old status post Claudio-en-Y gastric bypass in 2013. In mid-September of this year, the patient had a small-bowel volvulus which was surgically treated per Dr. Moralez. The volvulus appeared to recur mid week and the patient presented on Saturday. CT scan was obtained which suggested a small bowel volvulus. The patient was not uncomfortable, was not eating, and was admitted for hydration. On 11/24/2016, the patient underwent diagnostic laparoscopy which confirmed a small bowel volvulus through the jejunojejunal mesenteric defect. The defect was quite hard to visualize laparoscopically. Therefore, the jejunojejunostomy was revised. This was accomplished by means of division of the distal most Claudio limb and then re-connecting that to the bowel consisting of the biliopancreatic limb going into the common limb at about 250 cm proximal to the ileocecal valve. This was in a location where the mesenteric defect could be easily visualized and was closed in what appeared to be satisfactory manner. Postoperatively, the patient has done well. She is eating a regular diet. She will be switched over to Percocet this morning. The patient's ferritin was quite low at 14 and she during the hospitalization received 2 doses of 500 mg of Venofer. She will be sent home with Percocet 5/325 mg 1 to 2 tabs q.4 hours p.r.n. pain. Followup appointment would be on 12/03/2016 with Candis Blanc at [facility]. At that time consideration of getting the patient on long-term iron supplementation maybe appropriate.
== END 2016-11-25 09:45 | disposition home or self-care (01) | DRG 221 ==
LOC: JP.ICU 15:27 → JP.MS 11-24 10:15
PROVIDERS: ADMIT Surgery; ATTEND Surgery
PROC: 0DTA4ZZ Resection of Jejunum, Percutaneous Endoscopic Approach (ICD-10-PCS; principal; 2016-11-24)
PROC: 0DSA4ZZ Reposition Jejunum, Percutaneous Endoscopic Approach (ICD-10-PCS; 2016-11-24)
PROC: 0DUA4JZ Supplement Jejunum with Synthetic Substitute, Percutaneous Endoscopic Approach (ICD-10-PCS; 2016-11-24)
DX: K56.2 Volvulus (principal); K66.0 Peritoneal adhesions (postprocedural) (postinfection); Z98.84 Bariatric surgery status; K21.9 Gastro-esophageal reflux disease without esophagitis; K90.9 Intestinal malabsorption, unspecified
CPT/HCPCS: 36415; 74240; 74240-26; 82728; 84100; 88307; 94762; A9270-GY; C9113; J0694; J0780; J1100; J1170; J1644; J1756; J2185; J2250; J2405; J2704; J3010; J3410; J3411; J7042; J7050; J7120; Q9967

== ENCOUNTER 2016-12-22 22:28 | Day surgery (SDC) | payer BC ==
[2016-12-22] MEDS ORDERED: HYDROmorphone 1 MG/ML Syringe IVPUSH ONE (23:43)
[2016-12-22] MEDS ORDERED: Sodium Chloride 0.9% 10 ML Syringe FLUSH PRN (23:43)
[2016-12-22] MEDS ORDERED: LORazepam 2 MG/ML MDV IVPUSH ONE (23:43)
[2016-12-22] MEDS ORDERED: Lactated Ringers 1,000 ML IV ONE (23:44)
[2016-12-22] MEDS ORDERED: fentaNYL 100 MCG/2 ML SDV IVPUSH ONE (23:57)
[2016-12-23] MEDS ORDERED: Glucagon,Human Recombinant 1 MG Vial IM ONE (00:02)
--- NOTE | 2016-12-23 00:10 | EDM.PDOC ---
ED HPI GENERAL MEDICAL PROBLEM - General Chief Complaint: Abdominal Pain Stated Complaint: SOMETHING STUCK RNY Time Seen by Provider: 12/23/16 00:07 Source of Information: Reports: Patient, Family, Old Records, RN Notes Reviewed History Limitations: Reports: No Limitations - History of Present Illness INITIAL COMMENTS - FREE TEXT/NARRATIVE: 45-year-old female presents emergency department today with dysphagia, she was eating steak tips 1-1/2 days ago become lodged in her esophagus she has a history of gastric bypass converted from a band procedure also history of volvulus 2. She has had an event like this a few years ago which required endoscopy removal for the food impaction. She states she is not able to swallow her secretions - Related Data Allergies Allergy/AdvReac Type Severity Reaction Status Date / Time amoxicillin [Amoxicillin] Allergy Unknown Fever Verified 09/27/16 23:52 meperidine HCl [From Demerol] AdvReac Unknown Nausea and Verified 09/27/16 23:52 Vomiting Home Meds: Home Meds Calcium Carbonate [Calcium] 500 mg PO BID PRN 02/29/16 [History] Cholecalciferol (Vitamin D3) [Vitamin D3] 1,000 unit PO BID 09/27/16 [History] Polyethylene Glycol 3350 [MiraLAX] 17 gm PO DAILY PRN 09/27/16 [History] Sucralfate 1 gm PO BID PRN 09/27/16 [History] Vitamin B Complex [B Complex] 1 tab PO DAILY 09/27/16 [History] Past Medical History Gastrointestinal History: Reports: Cholelithiasis, GERD 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: Hematologic History: Reports: Anemia - Infectious Disease History Infectious Disease History: Reports: Chicken Pox, Shingles - Past Surgical History GI Surgical History: Reports: Cholecystectomy, EGD, Hernia, Abdominal Other GI Surgeries/Procedures: lap band to rny 2014 Female Surgical History: Reports: Section Social & Family History - Family History Cardiac: Reports: Hypertension, Pacemaker Neurological: Reports: Alzheimers Disease Endocrine/Metabolic: Reports: Hypoparathyroidism Hematologic: Reports: Anemia Oncologic: Reports: Breast - Tobacco Use Smoking Status *Q: Never Smoker Second Hand Smoke Exposure: No - Caffeine Use Caffeine Use: Reports: Coffee, Energy Drinks, Soda, Tea - Alcohol Use Days Per Week of Alcohol Use: 3 Number of Drinks Per Day: 0 Total Drinks Per Week: 0 - Recreational Drug Use Recreational Drug Use: No ED ROS GENERAL - Review of Systems Review Of Systems: See Below Constitutional: Reports: No Symptoms HEENT: Reports: No Symptoms Respiratory: Reports: No Symptoms Cardiovascular: Reports: No Symptoms GI/Abdominal: Reports: Difficulty Swallowing (cannot swallow her secretions). Denies: Abdominal Pain, Nausea, Vomiting : Reports: No Symptoms Musculoskeletal: Reports: No Symptoms Skin: Reports: No Symptoms ED EXAM, GI/ABD - Physical Exam Exam: See Below Exam Limited By: No Limitations General Appearance: Alert, Mild Distress Eyes: Bilateral: Normal Appearance Head: Atraumatic, Normocephalic Neck: Normal Inspection Respiratory/Chest: No Respiratory Distress, Lungs Clear, Normal Breath Sounds, No Accessory Muscle Use Cardiovascular: Regular Rate, Rhythm, No Murmur GI/Abdominal: Normal Bowel Sounds, Soft, Non-Tender Course - Vital Signs Last Recorded V/S: Last Vital Signs Temp 99.0 F 12/22/16 23:22 Pulse 85 12/22/16 23:22 Resp 20 12/22/16 23:22 BP 148/73 H 12/22/16 23:22 Pulse Ox 100 12/22/16 23:22 - Orders/Labs/Meds Orders: Active Orders 24 hr Category Date Time Status Peripheral IV Care [RC] . DIRECTED Care 12/22/16 23:43 Active Sodium Chloride 0.9% [Saline Flush] Med 12/22/16 23:43 Active 10 ml FLUSH ASDIRECTED PRN Peripheral IV Insertion Adult [OM.PC] Urgent Oth 12/22/16 23:43 Ordered Medication Orders Sodium Chloride (Saline Flush) 10 ml FLUSH ASDIRECTED PRN PRN Reason: Keep Vein Open Last Admin: 12/22/16 23:59 Dose: 10 ml Meds: Medications Generic Name Dose Route Start Last Admin Trade Name Freq PRN Reason Stop Dose Admin Sodium Chloride 10 ml 12/22/16 23:43 12/22/16 23:59 Saline Flush FLUSH 10 ml ASDIRECTED PRN Administration Keep Vein Open Discontinued Medications Generic Name Dose Route Start Last Admin Trade Name Freq PRN Reason Stop Dose Admin Fentanyl 100 mcg 12/22/16 23:57 12/23/16 00:18 Sublimaze IVPUSH 12/22/16 23:58 100 mcg ONETIME ONE Administration Glucagon 1 mg 12/23/16 00:02 Glucagen IM 12/23/16 00:03 ONETIME ONE Glucagon 1 mg 12/23/16 00:12 12/23/16 00:21 Glucagen IV 12/23/16 00:13 1 mg ONETIME ONE Administration Hydromorphone HCl 1 mg 12/22/16 23:43 Dilaudid IVPUSH 12/22/16 23:44 ONETIME ONE Lactated Ringer's 1,000 mls @ 999 mls/hr 12/22/16 23:44 12/22/16 23:56 Ringers, Lactated IV 12/23/16 00:44 999 mls/hr BOLUS ONE Administration Lorazepam 1 mg 12/22/16 23:43 12/22/16 23:58 Ativan IVPUSH 12/22/16 23:44 1 mg ONETIME ONE Administration Departure - Departure Time of Disposition: 01:06 Disposition: Still A Patient 30 Clinical Impression: Dysphagia Qualifiers: Dysphagia type: esophageal phase Qualified Code(s): R13.14 - Dysphagia, pharyngoesophageal phase - Discharge Information Forms: ED Department Discharge - My Orders Last 24 Hours: My Active Orders 12/22/16 23:43 Peripheral IV Care [RC] . DIRECTED Sodium Chloride 0.9% [Saline Flush] 10 ml FLUSH ASDIRECTED PRN Peripheral IV Insertion Adult [OM.PC] Urgent - Assessment/Plan Last 24 Hours: My Active Orders 12/22/16 23:43 Peripheral IV Care [RC] . DIRECTED Sodium Chloride 0.9% [Saline Flush] 10 ml FLUSH ASDIRECTED PRN Peripheral IV Insertion Adult [OM.PC] Urgent Plan: Assessment Acuity = acute Site and laterality = dysphagia, complicated in a patient with history of gastric bypass Etiology = suspicious for food bolus impaction Manifestations = pain Location of injury = home Lab values = none Plan attempted glucagon without success, call discuss case with general surgeon on- call he agreed to come and evaluate patient ED for endoscopically with possible dilation This note was dictated using [employer] voice recognition software please call with any questions.
[2016-12-23] MEDS ORDERED: Glucagon,Human Recombinant 1 MG Vial IV ONE (00:12)
[2016-12-23] MEDS ORDERED: Propofol 200 MG/20 ML SDV ONE ×2 (01:19→01:47)
[2016-12-23] MEDS ORDERED: fentaNYL 100 MCG/2 ML SDV ONE (01:20)
[2016-12-23] MEDS ORDERED: Midazolam 1 MG/ML 2 ML SDV ONE (01:20)
[2016-12-23] MEDS ORDERED: Glycopyrrolate 0.2 MG/ML SDV ONE (01:49)
[2016-12-23 02:59] VITALS: BP 136/85
--- NOTE | 2016-12-24 09:51 | OR ---
DATE OF PROCEDURE: 12/23/2016 PREOPERATIVE DIAGNOSIS: Obstructing anastomotic foreign body, consistent with steak. POSTOPERATIVE DIAGNOSIS: Obstructing anastomotic foreign body, consistent with steak. PROCEDURE: Esophagogastroduodenoscopy with removal of obstructing esophageal foreign body and the anastomosis was widely patent. ANESTHESIA: IV anesthesia with monitored anesthesia care. INDICATIONS: This 45-year-old white female who is about three years status post a Claudio-en-Y gastric bypass for morbid obesity. About day and a half ago she was eating steak when it became stuck and she was unable to the handle her secretions. She hoped it would ultimately pass, she even swallowed meat tenderizer, none of this was successful. She then presented to the emergency room this evening. She was taken to the operating room for removal of this obstructing esophageal foreign body and if we find her Claudio-en-Y gastric bypass anastomosis is tight, we will dilated it, I counseled her for this, and she gave her informed consent to proceed. DESCRIPTION OF PROCEDURE: The patient was placed in the left lateral decubitus position. IV anesthesia was administered by the Anesthesia Service. Time-out was held. The flexible video Olympus upper endoscope was passed through her mouth, down her esophagus, and into her stomach remnant, where we encountered a food bolus obstructing her gastrojejunostomy anastomosis. We passed a basket around a large portion of this and then removed the vast majority of the obstructing food bolus. The scope was passed down into the stomach, by this time a lot of the residual material had passed through the anastomosis into the jejunum, so a little residual remained in the stomach, which we easily pushed down into the jejunum. All looked well, we did not do a dilation as the anastomosis was widely patent. The scope was then removed. She tolerated the procedure well, and was brought to recovery room in good condition. Enzo Mast MD /[id number]
== END 2016-12-23 ==
LOC: JP.ED 22:28 → JP.SDS 12-23 01:09
PROVIDERS: ATTEND Surgery
DX: T18.128A Food in esophagus causing other injury, initial encounter (principal); E66.01 Morbid (severe) obesity due to excess calories; Z98.84 Bariatric surgery status; Z88.1 Allergy status to other antibiotic agents; Z88.8 Allergy status to other drugs, medicaments and biological substances; Z79.899 Other long term (current) drug therapy; K21.9 Gastro-esophageal reflux disease without esophagitis; D64.9 Anemia, unspecified; Z90.49 Acquired absence of other specified parts of digestive tract; Z98.890 Other specified postprocedural states
CPT/HCPCS: 43247; 96361; 96372; 96374; 96375; 99285; J1610; J2060; J2250; J2704; J3010; J7050; J7120

== ENCOUNTER 2020-01-13 09:28 | Emergency (ER) | payer BC ==
[2020-01-13 10:20] VITALS: BP 123/90; PULSE 98
--- NOTE | 2020-01-13 11:47 | CR ---
CHEST: 2 view CLINICAL HISTORY:Dyspnea COMPARISON:None FINDINGS: Patient has near complete opacification of the right hemithorax due to pleural effusion. Underlying airspace disease is not excluded. Left lung is clear. Heart size and pulmonary vascularity are normal. IMPRESSION: Very large right pleural effusion
[2020-01-13] MEDS: fentaNYL 100 MCG/2 ML SDV IVPUSH ONE (12:30)
--- NOTE | 2020-01-13 13:57 | CR ---
CHEST: 2 view CLINICAL HISTORY:Status post thoracentesis COMPARISON:Earlier same day FINDINGS: There is been some reduction in the right pleural effusion. There is no pneumothorax. There is a decrease in leftward shift of the mediastinum. There are some air bronchograms in the infrahilar region. IMPRESSION: Status post right thoracentesis with persistent large right pleural effusion and right lower lobe airspace disease Reduction in the leftward shift of the mediastinum No pneumothorax
--- NOTE | 2020-01-13 14:34 | EDM.PDOC ---
ED HPI GENERAL MEDICAL PROBLEM - General Chief Complaint: Upper Extremity Injury/Pain Stated Complaint: RT SHOULDER, RIB PAIN,COUGH, SOB Time Seen by Provider: 01/13/20 11:00 Source of Information: Reports: Patient - History of Present Illness INITIAL COMMENTS - FREE TEXT/NARRATIVE: This is a 49 yo who presents with concerns of shortness of breath. She has history of malnutrition due to bowel resection after an internal hernia. She has noticed after the last week or so increasing dyspnea. She attributes this to when she reached down to raise the foot rest on her recliner. She has some pain in the right side of her chest and right shoulder that has accompanied the shortness of breat. No fever. She is having non-productive cough. Right Upper Arm Pain Score (Numeric/FACES): 10 - Related Data Allergies Allergy/AdvReac Type Severity Reaction Status Date / Time amoxicillin [Amoxicillin] Allergy Unknown Fever Verified 01/13/20 10:18 meperidine HCl [From Demerol] AdvReac Unknown Nausea and Verified 01/13/20 10:18 Vomiting Home Meds: Home Meds Calcium Carbonate [Calcium] 500 mg PO BID PRN 02/29/16 [History] Cholecalciferol (Vitamin D3) [Vitamin D3] 1,000 unit PO BID 09/27/16 [History] Vitamin B Complex [B Complex] 1 tab PO DAILY 09/27/16 [History] Acetaminophen [Tylenol Arthritis] 650 mg PO Q4HR 01/13/20 [History] Ondansetron [Zofran ODT] 4 mg PO Q8H PRN 01/13/20 [History] Pedi Mv No.79/Ferrous Fumarate [Flintstones with Iron Tab Chew] 18 mg PO DAILY 01/13/20 [History] Past Medical History HEENT History: Reports: Allergic Rhinitis Cardiovascular History: Reports: None Respiratory History: Reports: None Gastrointestinal History: Reports: Cholelithiasis, GERD 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: Hematologic History: Reports: Anemia - Infectious Disease History Infectious Disease History: Reports: Chicken Pox, Shingles - Past Surgical History GI Surgical History: Reports: Bariatric Procedure, Cholecystectomy, EGD, Hernia, Abdominal Other GI Surgeries/Procedures: lap band to rny 2014 Female Surgical History: Reports: Section Social & Family History - Family History Cardiac: Reports: Hypertension, Pacemaker Neurological: Reports: Alzheimers Disease Endocrine/Metabolic: Reports: Hypoparathyroidism Hematologic: Reports: Anemia Oncologic: Reports: Breast - Tobacco Use Smoking Status *Q: Never Smoker - Caffeine Use Caffeine Use: Reports: Tea - Recreational Drug Use Recreational Drug Use: No Review of Systems - Review of Systems Review Of Systems: See Below Constitutional: Reports: No Symptoms Eyes: Reports: No Symptoms Ears: Reports: No Symptoms Nose: Reports: No Symptoms Mouth/Throat: Reports: No Symptoms Respiratory: Reports: Shortness of Breath Cardiovascular: Reports: Chest Pain GI/Abdominal: Reports: No Symptoms Genitourinary: Reports: No Symptoms Musculoskeletal: Reports: No Symptoms Skin: Reports: No Symptoms Neurological: Reports: No Symptoms Psychiatric: Reports: No Symptoms ED EXAM, GENERAL - Physical Exam Exam: See Below Exam Limited By: No Limitations General Appearance: Alert, No Apparent Distress, Thin Ears: Normal External Exam Nose: Normal Inspection Throat/Mouth: Normal Inspection Head: Atraumatic, Normocephalic Neck: Normal Inspection Respiratory/Chest: Other (lung sounds diminished on the right) Cardiovascular: Regular Rate, Rhythm GI/Abdominal: Soft, Distended Back Exam: Normal Inspection Extremities: Normal Inspection Neurological: Alert, Oriented Psychiatric: Normal Affect, Normal Mood Skin Exam: Warm, Dry ED TRAUMA EXTREMITY PROCEDURES - Additional/Other Procedure(s) Other (Free Text) Procedure(s): Thoracentesis procedure note: Appropriate pocket of fluid identified by US. Area prepped and draped in usual fashion. Anesthesia obtained with local lidocaine (6 cc). Approximately 2100 cc of straw color fluid easily drained from thorax. Patient tolerated well. Post procedural CXR with persist effusion, some improvement in aeration Sample sent to lab. Course - Vital Signs Last Recorded V/S: Last Vital Signs Temp 36.7 C 01/13/20 10:27 Pulse 98 01/13/20 10:27 Resp 20 01/13/20 10:27 BP 123/90 01/13/20 10:27 Pulse Ox 97 01/13/20 10:27 - Orders/Labs/Meds Orders: Active Orders 24 hr Category Date Time Status CULTURE BODY FLUID + SMEAR [RM] Stat Lab 01/13/20 12:50 Results Labs: Laboratory Tests 01/13/20 01/13/20 01/13/20 Range/Units 12:21 12:21 12:50 WBC 6.7 (4.5-11.0) K/uL RBC 3.87 (3.30-5.50) M/uL Hgb 11.7 L D (12.0-15.0) g/dL Hct 37.2 (36.0-48.0) % MCV 96 (80-98) fL MCH 30 (27-31) pg MCHC 32 (32-36) % Plt Count 356 (150-400) K/uL Sodium 141 (140-148) mmol/L Potassium 3.5 L (3.6-5.2) mmol/L Chloride 105 (100-108) mmol/L Carbon Dioxide 28 (21-32) mmol/L Anion Gap 11.5 (5.0-14.0) mmol/L BUN 9 (7-18) mg/dL Creatinine 0.8 (0.6-1.0) mg/dL Est Cr Clr Drug Dosing 73.46 mL/min Estimated GFR (MDRD) > 60 (>60) Glucose 81 (74-106) mg/dL Calcium 8.0 L (8.5-10.1) mg/dL Total Bilirubin 0.8 D (0.2-1.0) mg/dL AST 80 H D (15-37) U/L ALT 48 (12-78) U/L Alkaline Phosphatase 262 H D (46-116) U/L Total Protein 6.2 L (6.4-8.2) g/dL Albumin 2.0 L (3.4-5.0) g/dL Globulin 4.2 H (2.3-3.5) g/dL Albumin/Globulin Ratio 0.5 L (1.2-2.2) Fluid Type Pleural fluid Fluid pH Fluid WBC 60 /ul Fluid RBC 64 /ul Fluid Diff Comment Ok Fluid Mononuclear Cell 90 % Fl Polymorphonucl Cell 10 % Fluid Total Protein g/dL 01/13/20 01/13/20 Range/Units 12:50 12:50 WBC (4.5-11.0) K/uL RBC (3.30-5.50) M/uL Hgb (12.0-15.0) g/dL Hct (36.0-48.0) % MCV (80-98) fL MCH (27-31) pg MCHC (32-36) % Plt Count (150-400) K/uL Sodium (140-148) mmol/L Potassium (3.6-5.2) mmol/L Chloride (100-108) mmol/L Carbon Dioxide (21-32) mmol/L Anion Gap (5.0-14.0) mmol/L BUN (7-18) mg/dL Creatinine (0.6-1.0) mg/dL Est Cr Clr Drug Dosing mL/min Estimated GFR (MDRD) (>60) Glucose (74-106) mg/dL Calcium (8.5-10.1) mg/dL Total Bilirubin (0.2-1.0) mg/dL AST (15-37) U/L ALT (12-78) U/L Alkaline Phosphatase (46-116) U/L Total Protein (6.4-8.2) g/dL Albumin (3.4-5.0) g/dL Globulin (2.3-3.5) g/dL Albumin/Globulin Ratio (1.2-2.2) Fluid Type Pleural fluid Pleural fluid Fluid pH 8 Fluid WBC /ul Fluid RBC /ul Fluid Diff Comment Fluid Mononuclear Cell % Fl Polymorphonucl Cell % Fluid Total Protein < 2 g/dL Meds: Medications Discontinued Medications Generic Name Dose Route Start Last Admin Trade Name Freq PRN Reason Stop Dose Admin Fentanyl 50 mcg 01/13/20 12:23 01/13/20 12:30 Sublimaze IVPUSH 01/13/20 12:24 50 mcg ONETIME ONE Administration - Re-Assessments/Exams Free Text/Narrative Re-Assessment/Exam: 49 yo presents with dyspnea and right sided chest pain Found to have large right sided pleural effusion. I also identified significant ascites by US. She does not have a history of liver disease, suspect this is all due to mal nutrition. Given her tachypnea and difficulty breathing elected to performed thoracentesis: I only removed 2100 cc of fluid due to risk of re-expansion pulmonary edema. This did alleviate the patient's symptoms (although her imaging is still quite impressive on post-procedure CXR). She will need to follow up with her PCP to discuss repeat thoracentesis, and I suspect she will continue to have recurrence of the effusion until her malnutrition is addressed. She was monitored approx 45 minutes post procedure then discharged. 01/13/20 14:48 Departure - Departure Time of Disposition: 14:32 Disposition: Home, Self-Care 01 Clinical Impression: Pleural effusion - Discharge Information *PRESCRIPTION DRUG MONITORING PROGRAM REVIEWED*: No *COPY OF PRESCRIPTION DRUG MONITORING REPORT IN PATIENT TOM: No Instructions: Pleural Effusion Referrals: PCP,None [Primary Care Provider] - Forms: ED Department Discharge Additional Instructions: You still have significant fluid around your left lung You will receive a phone call for a follow up appointment with your primary doctor to discuss further management As discussed, please return to the ER if you develop worsening of your respiratory status Sepsis Event Note (ED) - Evaluation Sepsis Screening Result: No Definite Risk - Focused Exam Vital Signs: Vital Signs Temp Pulse Resp BP Pulse Ox 01/13/20 10:27 36.7 C 98 20 123/90 97 01/13/20 10:18 36.7 C 98 20 123/90 97 - My Orders Last 24 Hours: My Active Orders 01/13/20 12:50 CULTURE BODY FLUID + SMEAR [RM] Stat - Assessment/Plan Last 24 Hours: My Active Orders 01/13/20 12:50 CULTURE BODY FLUID + SMEAR [RM] Stat
== END 2020-01-13 14:55 | disposition home or self-care (01) ==
LOC: JP.ED 09:28
DX: J90 Pleural effusion, not elsewhere classified (principal); Z88.1 Allergy status to other antibiotic agents; Z88.5 Allergy status to narcotic agent; Z79.899 Other long term (current) drug therapy
CPT/HCPCS: 32555; 36415; 71046; 80053; 83986; 84157; 85027; 87070; 87205; 89050; 96374; 99285; J3010

== ENCOUNTER 2020-01-28 09:26 | Inpatient (IN) | payer BC ==
[2020-01-28] MEDS ORDERED: fentaNYL 100 MCG/2 ML SDV IVPUSH ONE (12:01)
[2020-01-28] MEDS ORDERED: Sodium Chloride 0.9% 75 ML IV ONE (13:29)
[2020-01-28] MEDS ORDERED: Iopamidol 612 MG/ML 100 ML Bottle IV PRN (13:29)
[2020-01-28] MEDS: Sodium Chloride 0.9% 10 ML Syringe FLUSH PRN (13:58)
[2020-01-28] MEDS ORDERED: Dextrose 5%-Lact Ringers w/KCl 1,000 ML IV SCH (14:00)
--- NOTE | 2020-01-28 14:03 | CR ---
CHEST: Portable 01/28/2020 at 1:03 PM CLINICAL HISTORY: Post Thoracentesis COMPARISON:01/13/2020 FINDINGS: Patient is a large right pleural effusion and right lower lobe airspace disease. There is been a decrease in fluid since the prior study. There is a positive lung markings in the apical region. No definite pneumothorax is identified. Impression: Some decrease in large right pleural effusion since prior study. Persistent right lower lobe airspace disease may represent the consolidation or atelectasis. Mass is not excluded
--- NOTE | 2020-01-28 14:12 | CT ---
Chest w Cont CLINICAL HISTORY: Postthoracentesis TECHNIQUE: Thin section axial contiguous tomographic sections were taken through the chest after bolus IV iodinated contrast administration. Coronal and sagittal images were reconstructed. Auto dosage reduction and iterative reconstruction techniques employed. FINDINGS: Patient is a large right pleural effusion and the medial segment of the right middle lobe. Patient has diffuse groundglass opacification in the right upper lobe. The patient is status post recent thoracentesis. This may represent some reexpansion pulmonary edema. No mediastinal mass or lymphadenopathy is identified. Scans into the upper abdomen shows ascites. There is some fatty infiltration of the liver. Patient has had previous bariatric surgery. There is some thickening of the splenic flexure of the colon. IMPRESSION: Large right pleural effusion with right lower lobe and some right middle lobe atelectasis Diffuse groundglass infiltrate in the right upper lobe which is felt to be related to reexpansion pulmonary edema following thoracentesis. Ascites Fatty infiltration liver Possible colonic thickening seen on the lowermost scans
[2020-01-28] MEDS ORDERED: Albuterol/Ipratropium 3.0-0.5 MG/3 ML Neb Soln NEB ONE (14:33)
[2020-01-28] MEDS ORDERED: methylPREDNISolone Sodium Succinate 125 MG/2 ML SDV IVPUSH ONE (14:45)
[2020-01-28] MEDS ORDERED: MVI, Adult with Vitamin K 10 ML, Chromium/Copper/Mang/Selen/Zn 1 ML, Thiamine 100 MG in... IV ONE ×4 (16:00)
[2020-01-28] MEDS ORDERED: Albuterol/Ipratropium 3.0-0.5 MG/3 ML Neb Soln INH PRN (16:07)
[2020-01-28] MEDS ORDERED: Amylase/Lipase/Protease 12,000 Unit Cap.CR PO PRN (16:23)
[2020-01-28] MEDS: HYDROmorphone/Normal Saline 15 MG/30 ML PCA IV PRN (17:16)
[2020-01-28] MEDS: Amylase/Lipase/Protease 12,000 Unit Cap.CR PO SCH (17:20)
[2020-01-28] MEDS ORDERED: Naloxone 0.4 MG/ML SDV IV PRN (18:00)
[2020-01-28] MEDS: Ondansetron 4 MG/2 ML SDV IVPUSH PRN (20:17)
[2020-01-29] MEDS: Ondansetron 4 MG/2 ML SDV IVPUSH PRN ×4 (00:25→13:03)
[2020-01-29] MEDS: Amylase/Lipase/Protease 12,000 Unit Cap.CR PO SCH ×2 (08:35→13:16)
[2020-01-29] MEDS: Sodium Chloride 0.9% 10 ML Syringe FLUSH PRN (08:53)
--- NOTE | 2020-01-29 09:00 | HP ---
ADMISSION DIAGNOSES: 1. Recurrent large right pleural effusion. 2. Severe protein-calorie malnutrition, unspecified surgical malabsorption. 3. Hypokalemia. 4. Multiple vitamin deficiencies. 5. Status post Claudio-en-Y gastric bypass surgery with removal of lap band, 2013. 6. Revision of Claudio-en-Y gastric bypass surgery, 2017. 7. Gastroesophageal reflux disease. 8. Chronic diarrhea. 9. Abdominal pain. 10.32 weight loss since September, 17 pounds in the last 2 weeks. 11.Low albumin, dropped from 2.5 to 2.3 in 2 weeks. 12.Vitamin B12 deficiency. 13.Elevated liver function tests. 14.Vitamin D deficiency and vitamin A deficiency. HISTORY OF PRESENT ILLNESS: Angelica Ward is a pleasant, 49-year-old female who presented to outpatient for a right pleural effusion. She was admitted to the hospital for severe protein-calorie malnutrition and is scheduled for surgery today. MEDICATIONS: 1. Compazine 5 mg 1 tab by mouth every 6 hours p.r.n. nausea. 2. Bentyl 10 mg 1 capsule by mouth 4 times a day before meals. 3. Rifaximin 1 tablet by mouth 2 times a day for 14 days. 4. Creon 36,000 unit capsules, she takes 2 capsules with meals and 1 with snacks. 5. Lasix 40 mg 2 tabs by mouth once daily. 6. Spironolactone 100 mg 2 tablets by mouth 1 time a day. 7. Zofran ODT 4 mg 1 tablet every 8 hours p.r.n. nausea. 8. Vitamin B12 1000 mcg sublingual. 9. Calcium 1000 mg 1 time a day. 10.Multivitamin 1 tablet once daily. SOCIAL HISTORY: . 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 Does not smoke. Alcohol, has not had any wine since December. Prior to that, she stated 2 to 3 drinks per week. Recreational drugs, nonapplicable. FAMILY HISTORY: Positive for diabetes, hypertension, cardiovascular disease, dyslipidemia, hyperthyroidism, osteoarthritis, iron deficiency anemia, lung cancer, breast cancer in mother, colon cancer in grandmother, congestive heart failure, Alzheimer's, myocardial infarction, and aneurysm. REVIEW OF SYSTEMS: HEENT: Negative. NECK: Negative. HEART: Has had some feeling of not chest pain, but a funny feeling in her chest, and questions if her heart is beating regularly. LUNGS: Shortness of breath, extreme fatigue. She has had large right pleural effusion, 2 L were drained in the emergency department on 01/14/2020 in [place], and 2600 mL were removed yesterday in outpatient at [facility]. ABDOMEN: Reports distention and diarrhea. Has not had an appetite. States she is unable to eat. Has a lot of nausea and vomiting. : Negative. EXTREMITIES: Negative for joint pain or swelling, but states her legs feel weak. SKIN: Without rash. NEUROLOGIC: Intact. PSYCHIATRIC: Mood and affect appropriate. PHYSICAL EXAMINATION: GENERAL: Angelica Ward is a 49-year-old female. Height is 5 feet 4 inches, weight is 122 pounds, BMI is 21. VITAL SIGNS: TPR at 6:59 is 95, 97, 16; blood pressure 103/70. HEENT: Negative. Hair is thin. NECK: Supple. HEART: Regular rate and rhythm. LUNGS: Decreased breath sounds on the right. There are no rales, rhonchi, or wheezing. ABDOMEN: Distended, soft, minimally tender. EXTREMITIES: Without peripheral edema. NEUROLOGIC: Cranial nerves II through XII intact. PSYCHIATRIC: Mood and affect appropriate. SKIN: Without rash. ASSESSMENT: 1. Recurrent right pleural effusion with thoracentesis 01/28/2020. 2. Severe protein-calorie malnutrition. 3. Low albumin. 4. Malnutrition due to surgery. 5. Hypokalemia. 6. Multiple vitamin deficiencies. 7. Status post Claudio-en-Y gastric bypass surgery. PLAN: 1. The patient is n.p.o. and scheduled for surgery today. Insertion of central IV line. 2. Exploratory laparotomy with revision, small bowel anatomy, repair of incisional hernia, right tube thoracostomy under general anesthesia with TAP block, ketamine loading dose and infusion and magnesium loading dose and infusion; cefoxitin 2 g IV push on-call to OR. 3. After preoperative evaluation and discussion of possible risks and possible complications, the patient wished to proceed with surgical procedure. EKG was ordered as baseline. Orders to be written postoperatively. 4. The patient cleared for general anesthesia. Candis Blanc PA-C /[id number]
[2020-01-29] MEDS ORDERED: fentaNYL 250 MCG/5 ML SDV ONE (09:12)
[2020-01-29] MEDS ORDERED: Propofol 200 MG/20 ML SDV ONE (09:13)
[2020-01-29] MEDS ORDERED: Glycopyrrolate 0.2 MG/ML 5 ML MDV ONE (09:13)
[2020-01-29] MEDS ORDERED: Rocuronium 50 MG/5 ML Vial ONE (09:13)
[2020-01-29] MEDS ORDERED: Succinylcholine 200 MG/10 ML MDV ONE (09:13)
[2020-01-29] MEDS ORDERED: Ondansetron 4 MG/2 ML SDV ONE (09:13)
[2020-01-29] MEDS ORDERED: Neostigmine Methylsulfate 1 MG/ML 5 ML Syringe ONE (09:13)
[2020-01-29] MEDS ORDERED: Dexamethasone 4 MG/ML SDV ONE (09:13)
[2020-01-29] MEDS ORDERED: Bupivacaine 0.5%/EPINEPHrine 1:200,000 50 ML MDV ONE (09:15)
[2020-01-29] MEDS ORDERED: Bupivacaine 0.5% 50 ML MDV ONE (09:15)
[2020-01-29] MEDS ORDERED: Meropenem 500 MG SDV ONE (09:15)
[2020-01-29] MEDS ORDERED: Lidocaine 1% with EPINEPHrine 1:100,000 50 ML MDV ONE (09:15)
[2020-01-29] MEDS ORDERED: SODIUM CHLORIDE 0.9% IV ONE (09:30)
[2020-01-29] MEDS ORDERED: Ketamine 50 MG in Sodium Chloride 0.9% 49.5 ML IV SCH (09:30)
[2020-01-29] MEDS ORDERED: MAGNESIUM SULFATE IV SCH (09:30)
[2020-01-29] MEDS ORDERED: MAGNESIUM SULFATE IV ONE (09:30)
[2020-01-29] MEDS ORDERED: Ketamine 500 MG/5 ML MDV IV SCH (09:30)
[2020-01-29] MEDS ORDERED: Ropivacaine 28 ML, dexAMETHasone 8 MG, EPINEPHrine 0.4 MG, Sodium Chloride 0.9% 49.6 ML NERVRT SCH ×4 (09:30)
[2020-01-29] MEDS ORDERED: cefOXitin 2 GM in Sodium Chloride 0.9% 50 ML IV ONE (09:30)
[2020-01-29] MEDS ORDERED: SODIUM CHLORIDE 0.9% IV SCH (09:30)
[2020-01-29] MEDS ORDERED: Lactated Ringers 1,000 ML ONE (11:32)
[2020-01-29] MEDS ORDERED: Calcium Gluconate 10% 1 GM/10 ML SDV IVPUSH PRN (14:00)
[2020-01-29] MEDS ORDERED: diphenhydrAMINE 50 MG/ML SDV IVPUSH PRN (14:00)
[2020-01-29] MEDS ORDERED: Dextrose 5%-Lact Ringers w/KCl 1,000 ML IV SCH ×2 (14:00→16:30)
[2020-01-29] MEDS ORDERED: Labetalol 20 MG/4 ML Syringe IVPUSH PRN (14:00)
[2020-01-29] MEDS ORDERED: Metoclopramide 10 MG/2 ML SDV IVPUSH PRN (14:00)
[2020-01-29] MEDS: hydrOXYzine HCL 100 MG/2 ML SDV IM PRN (14:01)
[2020-01-29] MEDS: Albuterol/Ipratropium 3.0-0.5 MG/3 ML Neb Soln INH SCH ×2 (14:20→21:16)
--- NOTE | 2020-01-29 14:24 | CR ---
CHEST: Portable 01/29/2020 at 12:08 PM CLINICAL HISTORY:History states chest tube placement COMPARISON:01/28/2020 FINDINGS: Patient has moderate right-sided pleural effusion. There is also diffuse right lung infiltrate. There is interval placement of a right subclavian catheter. Tip is in the right atrium. A chest tube is not identified. Lungs clear Impression: Persistent large right pleural effusion Dense right lobe pulmonary infiltrate or pulmonary edema Right subclavian central venous line The history states chest tube placement but there is no chest tube visualized.
[2020-01-29] MEDS ORDERED: Dextrose 5%-Lactated Ringers 1,000 ML IV SCH (15:00)
[2020-01-29] MEDS ORDERED: Pantoprazole 40 MG Vial IVPUSH SCH (15:00)
[2020-01-29] MEDS: HYDROmorphone/Normal Saline 15 MG/30 ML PCA IV PRN (15:18)
[2020-01-29] MEDS: cefOXitin 2 GM in Sodium Chloride 0.9% 50 ML IV SCH ×2 (15:19→21:19)
[2020-01-29] MEDS: 1: AA 5%/Calcium/D15W/Lytes 1,000 ML with MVI, Adult with Vitamin K 10 ML, Chromium/Copp IV SCH ×3 (15:38)
[2020-01-29] MEDS: Acetaminophen 325 MG Tab PO SCH ×2 (15:40→23:43)
[2020-01-29] MEDS: Furosemide 40 MG Tab PO SCH (15:44)
[2020-01-29] MEDS: Spironolactone 25 MG Tab PO SCH (15:45)
[2020-01-29] MEDS ORDERED: Acetaminophen 325 MG Tab PO SCH (16:00)
[2020-01-29] MEDS: Dextrose 5%-Lactated Ringers 1,000 ML IV SCH ×2 (17:28→23:52)
[2020-01-29] MEDS: Heparin Sodium 5,000 Units/ML Vial SUBCUT SCH (19:45)
[2020-01-30] MEDS: 1: AA 5%/Calcium/D15W/Lytes 1,000 ML with MVI, Adult with Vitamin K 10 ML, Chromium/Copp IV SCH ×9 (01:50→22:15)
[2020-01-30] MEDS: cefOXitin 2 GM in Sodium Chloride 0.9% 50 ML IV SCH ×2 (03:37→10:39)
[2020-01-30] MEDS ORDERED: Iopamidol 510 MG/ML 50 ML SDV PO ONE (04:06)
[2020-01-30] MEDS: Ondansetron 4 MG/2 ML SDV IVPUSH PRN (04:33)
[2020-01-30] MEDS: Albuterol/Ipratropium 3.0-0.5 MG/3 ML Neb Soln INH SCH ×4 (07:07→20:18)
[2020-01-30] MEDS: Spironolactone 25 MG Tab PO SCH ×2 (07:35→13:17)
[2020-01-30] MEDS: Acetaminophen 325 MG Tab PO SCH ×3 (07:35→22:17)
[2020-01-30] MEDS: Amylase/Lipase/Protease 12,000 Unit Cap.CR PO SCH ×3 (07:36→16:56)
[2020-01-30] MEDS: Furosemide 40 MG Tab PO SCH ×2 (07:36→13:17)
[2020-01-30] MEDS: Heparin Sodium 5,000 Units/ML Vial SUBCUT SCH ×2 (07:36→20:17)
[2020-01-30] MEDS ORDERED: Dextrose 5%-Lactated Ringers 1,000 ML IV SCH (08:00)
[2020-01-30] MEDS ORDERED: Vitamin A 100,000 Units/2 ML SDV IM ONE (09:00)
[2020-01-30] MEDS: Cyclobenzaprine 10 MG Tab PO PRN ×2 (09:49→20:18)
[2020-01-30] MEDS: SCOPOLAMINE PATCH CHECK TOP SCH (09:51)
[2020-01-30] MEDS: Docusate Sodium 100 MG Cap PO SCH ×2 (09:51→20:18)
--- NOTE | 2020-01-30 10:48 | PN ---
DATE OF SERVICE: 01/30/2020 The patient is postop day 1 from a revision of her small bowel limb-lengths for severe malnutrition. She also had persistent rapidly recurring right pleural effusion and a chest tube was placed. Chest x-ray looks good today. She does have some volume loss on the right side and some probable areas of edema related to the reexpansion as noted on CT scan 2 days ago, but otherwise the fluid appeared to be evacuated satisfactorily. O2 sats are running in the upper 90s on 2 L nasal cannula and clinically she does not appear to be significantly short of breath. The upper GI x-ray looks good. We will begin a step-2 diet today. We will give her some Glucerna between meals and also now begin supplementing the albumin which should help with maintaining the protein level as well. The fluid is being evacuated both from the abdomen and chest. Otherwise, we will maximize activity and work with pulmonary toilet. Franky Hunt MD /[id number]
[2020-01-30] MEDS: Pantoprazole 40 MG Tab.CR PO SCH (12:03)
[2020-01-30] MEDS: HYDROmorphone/Normal Saline 15 MG/30 ML PCA IV PRN (13:13)
[2020-01-30] MEDS: Fat Emulsion 100 ML IV SCH (16:00)
[2020-01-30] MEDS: HYDROmorphone 2 MG Tab PO PRN (22:15)
[2020-01-31] MEDS: Cyclobenzaprine 10 MG Tab PO PRN ×3 (03:45→22:19)
[2020-01-31] MEDS: Acetaminophen 500 MG Tab PO PRN (03:45)
[2020-01-31] MEDS: HYDROmorphone 2 MG Tab PO PRN ×5 (03:45→21:17)
[2020-01-31] MEDS: Albuterol/Ipratropium 3.0-0.5 MG/3 ML Neb Soln INH SCH ×4 (07:09→21:14)
[2020-01-31] MEDS: Acetaminophen 325 MG Tab PO SCH ×3 (07:50→22:19)
[2020-01-31] MEDS: Furosemide 40 MG Tab PO SCH ×2 (07:50→13:29)
[2020-01-31] MEDS: Spironolactone 25 MG Tab PO SCH ×2 (07:50→13:29)
[2020-01-31] MEDS: Pantoprazole 40 MG Tab.CR PO SCH (07:50)
[2020-01-31] MEDS: 1: AA 5%/Calcium/D15W/Lytes 1,000 ML with MVI, Adult with Vitamin K 10 ML, Chromium/Copp IV SCH ×6 (07:52→18:10)
[2020-01-31] MEDS: Heparin Sodium 5,000 Units/ML Vial SUBCUT SCH ×2 (08:08→21:14)
[2020-01-31] MEDS: Docusate Sodium 100 MG Cap PO SCH ×2 (08:08→21:14)
[2020-01-31] MEDS ORDERED: Cyanocobalamin (Vitamin B12) 1,000 MCG/ML SDV IM ONE (09:00)
[2020-01-31] MEDS: Amylase/Lipase/Protease 12,000 Unit Cap.CR PO SCH ×3 (09:18→16:20)
[2020-01-31] MEDS: Potassium Phos in 0.9 % NaCl 15 MMOL in Premix Bag 1 BAG IV SCH ×6 (09:23→13:35)
[2020-01-31] MEDS: SCOPOLAMINE PATCH CHECK TOP SCH (10:33)
[2020-01-31] MEDS: hydrOXYzine HCL 100 MG/2 ML SDV IM PRN ×2 (11:10→16:05)
--- NOTE | 2020-01-31 14:09 | HP ---
This 49-year-old is status post previous Claudio-en-Y gastric bypass with subsequent revision to a somewhat more distal bypass. The patient has been to [place] and lost to followup. However, now is presenting with what appeared to be quite severe malnutrition, along with a rapidly occurring right pleural effusion and moderate size of ascites. The patient had some elevated liver function tests, but recent imaging of liver does not show any obvious cirrhosis. Her albumin has come down into the 1.9 to 2.0 range. The patient underwent a thoracentesis earlier today for symptomatic control of the quite large right pleural effusion and will be admitted at this time. The plan would be to proceed with insertion of central IV line for perioperative hyperalimentation, along with albumin supplementation and open laparotomy with revision of the Claudio-en-Y gastric bypass, removing as much of the malabsorptive component of the current small bowel anatomy as possible. The patient appeared to have probably an incisional hernia present in the lower aspect of the epigastric region, although this may simply be very thin abdominal wall with some of the underlying viscera giving the appearance of a hernia. In addition to the central line and laparotomy, the patient will have a tube thoracostomy placed. I think this can be done with a small Roque catheter type tube, which will gradually remove the fluid and be under water seal status so as to avoid worsening of the pulmonary edema, which was seen earlier today. Franky Hunt MD /[id number]
--- NOTE | 2020-01-31 14:36 | PN ---
DATE OF SERVICE: 01/31/2020 The patient has been afebrile with stable vital signs. Oral intake was fairly good around 1560 in. Her I and O is roughly balanced, given losses, as well as the AARTI drainage and urine output. At this point, we will go up to a step-3 diet. Continue some Glucerna in between meals. Her phosphate is somewhat low even with TPN being set up with extra phosphate within it, likely related to some element of refeeding syndrome, so we will give her some additional K-Phos today. Otherwise, continue the TPN. The electrolytes have become a little bit alkalotic, but she has extra sodium chloride in her TPN as well and will see how that trends. If need be, we will make some adjustments tomorrow. Otherwise, we will continue and albumin supplementation. The AARTI drain will be removed today so as to minimize ongoing protein losses. Chest tube output was fairly small and the chest x- ray looks good with less volume loss than the previous day. Her hemoglobin is somewhat low and we will type and cross her 2 units of packed RBCs tomorrow and possibly transfuse 1 unit tomorrow. Otherwise, maximize activity and work with pulmonary toilet. Franky Hunt MD /[id number]
[2020-01-31] MEDS: Fat Emulsion 100 ML IV SCH (16:06)
[2020-02-01] MEDS: HYDROmorphone 2 MG Tab PO PRN ×5 (02:14→20:41)
[2020-02-01] MEDS: 1: AA 5%/Calcium/D15W/Lytes 1,000 ML with MVI, Adult with Vitamin K 10 ML, Chromium/Copp IV SCH ×3 (04:16)
[2020-02-01] MEDS ORDERED: Midazolam 1 MG/ML 2 ML SDV ONE (06:54)
[2020-02-01] MEDS: Albuterol/Ipratropium 3.0-0.5 MG/3 ML Neb Soln INH SCH ×4 (07:03→20:42)
--- NOTE | 2020-02-01 07:10 | OR ---
DATE OF PROCEDURE: 01/28/2020 SURGEON: Franky Hunt MD PREOPERATIVE DIAGNOSIS: Rapid recurrent right pleural effusion. POSTOPERATIVE DIAGNOSIS: Rapid recurrent right pleural effusion. OPERATIVE PROCEDURE: Ultrasound-guided right thoracentesis (19137). ANESTHESIA: Local. INDICATIONS FOR PROCEDURE: This is a 49-year-old, recently presenting with quite severe malnutrition related to her Claudio-en-Y gastric bypass status and lack of satisfactory followup among other problems. The patient has developed rapidly recurring right pleural effusion. This appeared to be associated with some significant ascites probably related to a combination of liver disease and underlying hypoproteinemia with there likely being some element of communication between the peritoneal and right pleural space resulting in a rapid recurrence of the pleural effusion. The plan was to do an ultrasound-guided right thoracentesis. We will then follow this with an admission with a planned revision of her gastric bypass to reduce the amount of malabsorption that the patient is currently experiencing. Potential risks of today's procedure including bleeding, infection, pneumothorax were all reviewed, and the patient wishes to proceed. DETAILS OF PROCEDURE: In the ACU procedure room in a sitting position, the right posterolateral chest wall was marked with an ultrasound and that area was then prepped and draped and anesthetized with 1% lidocaine mixed with Marcaine. Thoracentesis catheter was then placed and 2600 mL of clear serous fluid was evacuated. Previously drains which had been run through a full battery of laboratory exam and today's fluid was sent away for cytology. Following removal of 2600 mL, the catheter was then withdrawn and dressing applied. Chest x-ray showed some continued pleural effusion, although the lung was fairly more aerated than previously. The patient did develop clinically some post expansion of pulmonary edema which resolved with a dose of steroids and a DuoNeb. CT scan was obtained to rule out other pathology and apart from the persistent pleural fluid and some edema in primarily upper lobe, no additional pathology was seen. Plan is to admit the patient for a revisional procedure with ongoing nutritional care tomorrow. Franky Hunt MD /[id number]
[2020-02-01] MEDS ORDERED: Central Total Parenteral Nutrition Bag SCH (07:30)
[2020-02-01] MEDS ORDERED: Midazolam 1 MG/ML 2 ML SDV IV ONE (08:00)
[2020-02-01] MEDS ORDERED: Midazolam 1 MG/ML 5 ML SDV IVPUSH ONE (08:20)
--- NOTE | 2020-02-01 09:18 | CR ---
UGI Limited HISTORY: Postbariatric surgery FINDINGS: Patient swallowed water-soluble contrast. Upright views of the abdomen show some free air in the right upper quadrant. There is some delayed in passage of contrast through the small intestine on the delayed image. There is also some reflux into the esophagus.. There is a collection of contrast in the left upper quadrant which is likely within small bowel but is poorly seen due to superimposed the bowel loops. IMPRESSION: Status post bariatric surgery Nonprogression barium on delayed image with some reflux into esophagus. This may be due to ileus. Amorphous collection of contrast in the left upper quadrant. This may be within small bowel. Visualization is limited due to numerous overlapping bowel loops. If clinically relevant, repeat the exam recommended.
--- NOTE | 2020-02-01 09:23 | CR ---
CHEST: Portable 01/30/2020 at 03 59 CLINICAL HISTORY:Chest tube COMPARISON:01/29/2020 FINDINGS: There is been significant reduction in right sided pleural effusion. There is diffuse right-sided the airspace disease which is likely reexpansion pulmonary edema. Superimposed infiltrate is not excluded. Right central venous catheter remains in place. There is some persistent elevation of the right hemidiaphragm Impression: Significant reduction in right pleural effusion Right sided infiltrate and/or pulmonary edema persist
--- NOTE | 2020-02-01 09:27 | CR ---
CHEST: Portable 01/31/2020 at 4:19 AM CLINICAL HISTORY:Chest tube COMPARISON:01/30/2020 FINDINGS: There is improved aeration in the right hemithorax and compared to prior study. There is no significant reaccumulation pleural fluid. Right lung infiltrate and/or edema persist. Impression: Improved aeration right hemithorax Persistent right lung infiltrate and/or pulmonary edema CHEST: Portable 02/01/2020 5:02 AM CLINICAL HISTORY:Chest tube COMPARISON:01/31/2020 FINDINGS: There is significant improvement in aeration in the right lung. There is decreasing right lung airspace disease. Right clavian catheter remains in place. Left lung remains clear. IMPRESSION: Continuing improvement in aeration of the right lung when compared to prior studies
[2020-02-01] MEDS: Spironolactone 25 MG Tab PO SCH ×2 (10:25→13:28)
[2020-02-01] MEDS: Pantoprazole 40 MG Tab.CR PO SCH (10:25)
[2020-02-01] MEDS: Acetaminophen 325 MG Tab PO SCH ×3 (10:25→22:30)
[2020-02-01] MEDS: Heparin Sodium 5,000 Units/ML Vial SUBCUT SCH ×2 (10:26→20:41)
[2020-02-01] MEDS: Amylase/Lipase/Protease 12,000 Unit Cap.CR PO SCH ×3 (10:26→16:26)
[2020-02-01] MEDS: Docusate Sodium 100 MG Cap PO SCH ×2 (10:26→20:41)
[2020-02-01] MEDS: Furosemide 40 MG Tab PO SCH ×2 (11:05→13:28)
--- NOTE | 2020-02-01 11:46 | PN ---
DATE OF SERVICE: 02/01/2020 SUBJECTIVE: Angelica has been afebrile. Oral intake on a step 3 diet is 1720. Urine output 7250. AARTI drain has put out 1580. Chest tube put out 100 mL of a clear drainage. She has been up ambulating. Pain is managed with oral Dilaudid. She has no other concerns or questions today. OBJECTIVE: GENERAL: Angelica Ward is a 49-year-old female. She is alert and orientated. VITAL SIGNS: TPR on 02/01/2020 at 0000 was 99.1, 118, 16. Blood pressure is 93/60, O2 is 94%. HEENT: Negative. NECK: Supple. HEART: Regular rate and rhythm. LUNGS: Clear. ABDOMEN: Dressings dry and intact. AARTI drain intact. EXTREMITIES: Without peripheral edema. ASSESSMENT: 1. Ultrasound-guided right thoracentesis for rapid recurrent right pleural effusion on 01/28/2020. Insertion of right subclavian triple-lumen. 2. Right tube thoracostomy. 3. Exploratory laparotomy with: a. Small bowel resection. b. Secondary enteroenterostomy to restore small bowel Claudio-en-Y anatomy. c. Needle liver biopsy. POSTOPERATIVE DIAGNOSES: 1. Severe malnutrition, status post Claudio-en-Y gastric bypass surgery. 2. Rapidly recurring right pleural effusion. Date of surgery 01/29/2020. Surgeon: Franky Hunt MD. PLAN: 1. Versed 5 mg IV at bedside. Continuous pulse ox. 2. Franky Hunt MD to pull AARTI at bedside. 3. TPN decreased to 60 mL per hour, same content. 4. 1 unit of packed red blood cells to be infused today. 5. Check CBC, CMP, mag and phos in a.m. 6. We will evaluate p.r.n. or in a.m. Candis Blanc PA-C /[id number]
[2020-02-01] MEDS: Cyclobenzaprine 10 MG Tab PO PRN ×2 (12:31→20:44)
--- NOTE | 2020-02-01 13:39 | OR ---
DATE OF PROCEDURE: 01/29/2020 SURGEON: Franky Hunt MD PREOPERATIVE DIAGNOSES: 1. Severe malnutrition, status post Claudio-en-Y gastric bypass. 2. Rapidly recurring right pleural effusion. 3. Increased liver function tests. POSTOPERATIVE DIAGNOSES: 1. Severe malnutrition, status post Claudio-en-Y gastric bypass. 2. Rapidly recurring right pleural effusion. 3. Increased liver function tests. OPERATIVE PROCEDURES: 1. Insertion of right subclavian vein triple-lumen catheter (82957). 2. Right tube thoracostomy (49567). 3. Exploratory laparotomy with: a. Small bowel resection (28293). b. Secondary enteroenterostomy to restore small bowel Claudio-en-Y anatomy (17343). c. John-Cut needle biopsy of liver (71685). ANESTHESIA: General. BOMB LOADER: Candis Blanc PA-C INDICATIONS FOR PROCEDURE: Please see admission note dictated yesterday. Potential risks of the procedures including bleeding, infection, injury to the vasculature and/or lung during the central line insertion, injury to the lung or chest wall during the chest tube insertion, otherwise problems with laparotomy such as bleeding and infection, injury to underlying viscera, leaks from GI tract closures were all reviewed, along with the remote possibility of cardiopulmonary, septic, or hemorrhagic complications leading to , and the patient wishes to proceed. DETAILS OF PROCEDURE: The patient was taken to the operating room and placed in a supine position. After general endotracheal anesthesia was induced, a Roque catheter was inserted. Initially, the upper chest and neck areas were prepped and draped. Initially, the left subclavian vein was cannulated. This was cannulated on several occasions, and at no point could we pass a guidewire in what appeared to be likely the junction of the subclavian, jugular, and innominate veins. Given this, attention was taken to the right side. The right subclavian vein was easily cannulated and guidewire passed. Over this, a triple-lumen catheter was positioned. Good in and outflow was noted. Ports were flushed with heparinized saline. Catheter was sutured to skin with some 3-0 silk stitch. Subsequent chest x-ray showed the catheter tip to be within the right atrium, and no evident complications were present. Attention was then taken to the insertion of the chest tube. The goal in this case was simply to provide an area of slow evacuation of the pleural fluid. The patient did experience some post expansion pulmonary edema of the lung yesterday, so the plan at this point will be to proceed with a Roque catheter insertion type chest tube. The right lateral chest wall was prepped and draped, and at a level just below the level of the breast in the anterior lateral chest wall, a small incision was made and the pleural space entered. An 18- Syriac Roque catheter was then inserted, inflated with 10 mL of saline, and pulled up snugly against the chest wall. The catheter was sutured to skin with some 2-0 Ethibond stitch, and at this point, the chest tube was placed in a clamp and positioned so as to allow a slow re- expansion of the lung in the postoperative period, avoiding issue of re-expansion pulmonary edema during the operative procedure presently being undertaken. At this point, the abdomen was then prepped and draped. A midline incision was made from the umbilicus, roughly a handsbreadth toward the xiphoid. This was carried down through the full-thickness abdominal wall. Upon entering the peritoneal cavity, general exploration was undertaken. Moderate amount of clear ascitic fluid was evacuated. Examination showed the liver to be noncirrhotic but somewhat enlarged and quite firm. There was no evidence of portal hypertension. John-Cut needle biopsy was obtained x2 from the right lobe of the liver and sent for histologic evaluation. Minimal bleeding from the biopsy sites was seen and controlled with electrocautery. At this point, the small bowel was examined. As expected, the patient had at this point a Claudio limb of roughly 120 cm and a quite long biliopancreatic limb with a common limb now measured at around 250 cm. Given the patient's degree of malnutrition, the aim at this point was to minimize any malabsorption. Given this, the present jejunojejunostomy was resected with 3 components being divided with a AGAPITO stapler, the mesenteric defect was divided with AGAPITO suzy as well, and the small bowel specimen delivered from the field. GI tract continuity was initially reestablished with a [id number] enteroenterostomy between what had been the distal-most biliopancreatic limb and the common limb. This was with internal firing of the Endo-AGAPITO 60 mm stapler. Common opening was closed transversely with the same stapler, the angles of anastomosis were reinforced with 3-0 Vicryl stitch, and the mesenteric defect was closed with a 2-0 silk stitch. At this point, the Claudio limb was then reanastomosed to the biliopancreatic limb, in this case going around 15 cm distal to the ligament of Treitz. This added roughly 220 cm of common limb to the patient's current small bowel anatomy. This was accomplished with same sequence of suzy as outlined with previous anastomosis, as was the closure of the mesenteric defect. At this point, the abdomen was irrigated with antibiotic-containing saline solution. There was enough omentum to place underneath the pelvic and abdominal wall and underlying incision, so an absorbable mesh was not felt to be necessary. Bilateral transversus abdominis plane blocks were placed and the midline fascia was then approximated with #2 Vicryl stitch. It was then also anesthetized with 0.5% Marcaine mixed with lidocaine. The incision was then closed with subcutaneous tissue with 2 layers of 3-0 Vicryl stitch and the skin with suzy. Dressing was applied. The patient was taken to the recovery room in satisfactory condition. Physician assistant media buyer, Candis Blanc, played an essential role in assisting in this case, helping to position the patient, retract structures as needed, as well as suturing and cutting sutures when indicated. Her presence improved patient safety and decreased operative time. Franky Hunt MD /[id number]
[2020-02-01] MEDS ORDERED: 1: AA 5%/Calcium/D15W/Lytes 1,000 ML with MVI, Adult with Vitamin K 10 ML, Chromium/Copp IV SCH ×3 (15:00)
[2020-02-01] MEDS: Fat Emulsion 100 ML IV SCH (15:47)
[2020-02-01] MEDS: Acetaminophen 500 MG Tab PO PRN (19:50)
[2020-02-02] MEDS: HYDROmorphone 2 MG Tab PO PRN ×6 (00:30→22:24)
[2020-02-02] MEDS: Cyclobenzaprine 10 MG Tab PO PRN ×2 (04:26→20:05)
[2020-02-02] MEDS: Albuterol/Ipratropium 3.0-0.5 MG/3 ML Neb Soln INH SCH ×4 (07:11→21:01)
[2020-02-02] MEDS ORDERED: Central Total Parenteral Nutrition Bag SCH (07:15)
[2020-02-02] MEDS ORDERED: Dextrose 5%-Lactated Ringers 1,000 ML IV SCH ×2 (07:30→08:00)
[2020-02-02] MEDS: Heparin Sodium 5,000 Units/ML Vial SUBCUT SCH ×2 (07:46→20:25)
[2020-02-02] MEDS: Furosemide 40 MG Tab PO SCH ×2 (07:46→13:41)
[2020-02-02] MEDS: Pantoprazole 40 MG Tab.CR PO SCH (07:47)
[2020-02-02] MEDS: Acetaminophen 325 MG Tab PO SCH ×3 (07:47→22:26)
[2020-02-02] MEDS: Spironolactone 25 MG Tab PO SCH ×2 (07:47→13:40)
[2020-02-02] MEDS: Amylase/Lipase/Protease 12,000 Unit Cap.CR PO SCH ×3 (07:47→17:14)
[2020-02-02] MEDS: Docusate Sodium 100 MG Cap PO SCH ×3 (07:48→20:25)
[2020-02-02] MEDS: 1: AA 5%/Calcium/D15W/Lytes 1,000 ML with MVI, Adult with Vitamin K 10 ML, Chromium/Copp IV SCH ×3 (09:29)
--- NOTE | 2020-02-02 09:31 | CR ---
CHEST: Portable 02/02/2020 at 4:50 AM CLINICAL HISTORY:Chest tube COMPARISON:02/01/2020 FINDINGS: Right occluding catheter remains in the right atrium. There is no pneumothorax or pleural effusion. There is persistent density in the right lower lung field. The pulmonary edema and/or infiltrate have significantly involuted. There is still some atelectasis in the right lung base. Impression: Resolving right lung infiltrate and/or edema. Persistent rounded density right lung base Right subclavian catheter in good position Should be noted that the current and multiple prior clinical history is provided state chest tube. A radiopaque chest tube is not identified in the right hemithorax. There is a persistent linear radiolucency below the right lung. Clinical correlation necessary
[2020-02-02] MEDS: Ondansetron 4 MG/2 ML SDV IVPUSH PRN (09:43)
[2020-02-02] MEDS: Vitamin A 100,000 Units/2 ML SDV IM SCH (10:07)
--- NOTE | 2020-02-02 11:06 | PN ---
DATE OF SERVICE: 02/02/2020 SUBJECTIVE: Angelica's oral intake was 2440, output 3600. TPN is running at 60 mL per hours. Chest tube put out 0. Hemoglobin 9.3, albumin 2.7, and protein 5.9. The pain is well managed. Up ambulating. REVIEW OF SYSTEMS: Remainder of review of systems negative for any pertinent positives or negatives. OBJECTIVE: GENERAL: Angelica Ward is a 49-year-old female. VITAL SIGNS: TPR at 0300; 97.2, 107, 16, and blood pressure 100/69. HEENT: Negative. NECK: Supple. HEART: Regular rate and rhythm. LUNGS: Clear. Chest tube is intact. ABDOMEN: Abdominal binder is on. Dressing dry and intact. EXTREMITIES: Without peripheral edema. ASSESSMENT: 1. Insertion of right subclavian vein triple-lumen. 2. Right tube thoracostomy. 3. Exploratory laparotomy with small bowel resection. 4. Secondary enteroenterostomy to restore small bowel Claudio-en-Y anatomy. 5. John-Cut needle liver biopsy. POSTOPERATIVE DIAGNOSES: 1. Severe malnutrition, status post Claudio-en-Y gastric bypass surgery. 2. Rapidly recurring right pleural effusion. 3. Increased liver function tests. DATE OF SURGERY: 01/29/2020. SURGEON: Franky Hunt MD. PLAN: 1. Vitamin A 100,000 international units IM today and tomorrow. 2. Decrease TPN to 40 mL per hour, same contents. 3. Check CBC, CMP, mag, and phos in a.m. 4. Continue good pulmonary toilet. 5. We will evaluate p.r.n. or in the a.m. 6. Plan to discharge on 02/04/2020. Candis Blanc PA-C /[id number]
[2020-02-02] MEDS: Fat Emulsion 100 ML IV SCH (16:05)
[2020-02-02] MEDS: hydrOXYzine HCL 100 MG/2 ML SDV IM PRN (22:37)
[2020-02-03] MEDS: HYDROmorphone 2 MG Tab PO PRN ×6 (02:36→22:38)
[2020-02-03] MEDS: Albuterol/Ipratropium 3.0-0.5 MG/3 ML Neb Soln INH SCH ×4 (07:10→21:08)
[2020-02-03] MEDS: Acetaminophen 325 MG Tab PO SCH ×3 (07:55→22:39)
[2020-02-03] MEDS: Spironolactone 25 MG Tab PO SCH ×2 (07:56→13:41)
[2020-02-03] MEDS: Pantoprazole 40 MG Tab.CR PO SCH (07:56)
[2020-02-03] MEDS: Heparin Sodium 5,000 Units/ML Vial SUBCUT SCH (07:57)
[2020-02-03] MEDS: Furosemide 40 MG Tab PO SCH ×2 (07:58→13:41)
[2020-02-03] MEDS: Docusate Sodium 100 MG Cap PO SCH ×2 (08:00→21:08)
[2020-02-03] MEDS ORDERED: Central Total Parenteral Nutrition Bag SCH ×2 (08:15)
--- NOTE | 2020-02-03 09:06 | CR ---
CHEST: Portable 02/03/2020 at 4:33 AM CLINICAL HISTORY:Chest tube COMPARISON:Multiple prior studies FINDINGS: There is persistent patchy density in the right lower lung field. There is a rounded density superimposed. This may be the balloon of a Roque catheter. There is a history of chest tube in place. The tube structure is not identified. Patient is a right subclavian catheter in place unchanged in position. Left lung is clear. Impression: Persistent right lower lung airspace disease similar to prior study
--- NOTE | 2020-02-03 09:59 | PN ---
DATE OF SERVICE: 02/03/2020 SUBJECTIVE: Angelica remains to be afebrile. Oral intake 1360. Urine output 4650. She had zero drainage out of her chest tube. Reports pain at the chest tube site and just general back pain from lying in bed. She has been up ambulating and has no other concerns or questions. LABORATORY DATA: Hemoglobin 9.3, bilirubin 1.8, AST 671, ALT 293, and alkaline phosphatase is greater than 1000. Protein 2.7, albumin 3.6. REVIEW OF SYSTEMS: Remainder of review of systems negative for any pertinent positives and negatives. OBJECTIVE: GENERAL: Angelica Ward is a 49-year-old female. She is alert and orientated. VITAL SIGNS: TPR at 0816, 98.2, 124, 16, blood pressure 100/70. HEENT: Negative. NECK: Supple. HEART: Regular rate and rhythm. LUNGS: Clear with some decreased breath sounds in the right lower lobe. Chest tube intact. ABDOMEN: Dressings dry and intact. EXTREMITIES: Without peripheral edema. ASSESSMENT: 1. Insertion of right subclavian vein triple lumen. 2. Right tube thoracostomy. 3. Exploratory laparotomy, small bowel resection. 4. Secondary enteroenterostomy to restore small bowel Claudio-en-Y anatomy. 5. John-cut needle liver biopsy. POSTOPERATIVE DIAGNOSES: 1. Severe malnutrition, status post Claudio-en-Y gastric bypass surgery. 2. Rapidly recurring right pleural effusion. 3. Increased liver function tests. Date of surgery, 01/29/2020. PLAN: 1. Continue same TPN rate and content. Check CBC, CMP, mag, and phos in a.m. 2. Albumin 50 g IV daily. 3. Dulcolax 10 mg p.o. b.i.d. until the patient has bowel movement. 4. Communication order, may remove chest tube dressing and Aquacel dressing, shower, replace chest tube dressing and Aquacel dressing. 5. Hold Creon per the patient's request, thinking that is making her not to have a bowel movement. 6. We will evaluate p.r.n. or in a.m. Candis Blanc PA-C /[id number]
[2020-02-03] MEDS: Cyclobenzaprine 10 MG Tab PO PRN ×2 (10:17→19:41)
[2020-02-03] MEDS: 1: AA 5%/Calcium/D15W/Lytes 1,000 ML with MVI, Adult with Vitamin K 10 ML, Chromium/Copp IV SCH ×3 (10:17)
[2020-02-03] MEDS: Vitamin A 100,000 Units/2 ML SDV IM SCH (10:22)
[2020-02-03] MEDS: Bisacodyl 5 MG Tab PO SCH ×2 (10:23→21:07)
[2020-02-03] MEDS: Amylase/Lipase/Protease 12,000 Unit Cap.CR PO SCH (10:25)
[2020-02-03] MEDS: Fat Emulsion 100 ML IV SCH (17:02)
[2020-02-03] MEDS: Acetaminophen 500 MG Tab PO PRN (19:41)
[2020-02-04] MEDS: HYDROmorphone 2 MG Tab PO PRN ×3 (04:52→14:29)
[2020-02-04] MEDS ORDERED: LORazepam 2 MG/ML SDV IVPUSH STA (06:46)
[2020-02-04] MEDS: Albuterol/Ipratropium 3.0-0.5 MG/3 ML Neb Soln INH SCH ×3 (07:19→14:26)
[2020-02-04] MEDS: Acetaminophen 325 MG Tab PO SCH ×2 (08:09→14:29)
[2020-02-04] MEDS: Spironolactone 25 MG Tab PO SCH ×3 (08:13→15:56)
[2020-02-04] MEDS: Furosemide 40 MG Tab PO SCH ×3 (08:14→15:56)
[2020-02-04] MEDS ORDERED: Cyanocobalamin (Vitamin B12) 1,000 MCG/ML SDV IM ONE (09:00)
--- NOTE | 2020-02-04 09:11 | CR ---
CHEST: Portable 02/04/2020 at 1512 CLINICAL HISTORY:Chest tube COMPARISON:02/03/2020 FINDINGS: There is some persistent patchy airspace disease in the right lung base. There may be minimal effusion. There is no pneumothorax. Right subclavian catheter and chest tube remain in place Impression: Minimal residual airspace disease right lung base with minimal effusion .
[2020-02-04] MEDS: Bisacodyl 5 MG Tab PO SCH (09:29)
[2020-02-04] MEDS: Pantoprazole 40 MG Tab.CR PO SCH (09:29)
[2020-02-04] MEDS: Heparin Sodium 5,000 Units/ML Vial SUBCUT SCH (09:29)
[2020-02-04] MEDS: Docusate Sodium 100 MG Cap PO SCH (09:37)
[2020-02-04] MEDS: 1: AA 5%/Calcium/D15W/Lytes 1,000 ML with MVI, Adult with Vitamin K 10 ML, Chromium/Copp IV SCH ×3 (09:49)
--- NOTE | 2020-02-04 11:04 | DISCH ---
ADMISSION DIAGNOSES: 1. Severe protein-calorie malnutrition. 2. Recurrent right pleural effusion, requiring thoracentesis. The last thoracentesis was 01/28/2020. 3. Low albumin and protein. 4. Malnutrition following gastric bypass surgery. 5. Hypokalemia. 6. Multiple vitamin deficiencies. 7. Status post Claudio-en-Y gastric bypass surgery. 8. Unspecified surgical malabsorption. 9. 32-pound weight loss since September 2019, 17 pounds in the last 2 weeks. 10.Elevated liver function tests. 11.Prior history of alcohol and Tylenol. DISCHARGE DIAGNOSES: 1. Ultrasound-guided right thoracentesis on 01/28/2020 with removal of 2600 mL. 2. Insertion of right subclavian vein triple-lumen catheter. 3. Right tube thoracostomy. 4. Exploratory laparotomy with: a. Small bowel resection. b. Secondary enterostomy to restore small bowel Claudio-en-Y anatomy. c. Jhon-Cut needle liver biopsy. POSTOPERATIVE DIAGNOSIS: 1. Severe malnutrition, status post Claudio-en-Y gastric bypass surgery. 2. Rapidly reoccurring right pleural effusion. 3. Increased liver function tests. 4. Date of procedure: 01/29/2020. HISTORY: Angelica Ward is a 49-year-old female, recently presenting with quite severe malnutrition related to Claudio-en-Y gastric bypass status and lack of satisfactory followup among increased intake of alcohol and Tylenol. She has developed rapidly reoccurring right pleural effusion. This appeared to be associated with significant ascites, probably related to combination of liver disease and underlying hypoproteinemia. After preoperative evaluation, discussion of possible risks and possible complications, she wished to proceed with surgical procedure. HOSPITAL COURSE: The thoracentesis was done on 01/28/2020 in [facility]. The patient was [facility], after the thoracentesis, and after preoperative evaluation and discussion of possible risks and possible complications, she consented to surgery, which was on 01/29/2020. TPN was started immediately. She was followed closely with laboratory testing. She also received albumin almost daily. She did receive 1 unit of packed red blood cells on 02/04/2020. Angelica tolerated a step 2 diet, was advanced to a step 4 diet. She received bowel stimulation but had not had a bowel movement before discharge. Chest tube was removed on the morning of discharge. Tolerated procedure well. With low vitamin A, she was given 3 injections of vitamin A 1 each day for 3 days. She had no reactions to that. On 02/04/2020, she is able to be discharged to home. PHYSICAL EXAMINATION: GENERAL: Angelica Ward is a 49-year-old female. VITAL SIGNS: Height is 5 feet 4 inches, weight is 124 pounds, BMI is 21. TPR at 0808 is 98.4; 112; 16; blood pressure 87/56; O2 is 99%. HEENT: Negative. NECK: Supple. Triple lumen dressing dry and intact. CHEST: Tube has been removed. The dressing is dry and intact. ABDOMEN: Aquacel dressing is on, dry and intact. Abdominal binder is on. EXTREMITIES: Reveal no peripheral edema. NEUROLOGIC: Intact. PSYCHIATRIC: Mood and affect appropriate. DISPOSITION: Discharged to home. CONDITION: Stable and improving. FOLLOWUP: Appointment with Candis Blanc PA-C, on 02/10/2020 at 1000. To have chest x-ray, PA and lateral, and CBC and CMP at 0930. Will need Brunner catheter flushed and dressing changed at that appointment also. NEW PRESCRIPTIONS: 1. Colace 100 mg oral b.i.d., #60. 2. Dilaudid 2 mg every 4 hours p.r.n. pain, #42. 3. Dulcolax 10 mg oral tablets twice daily, #30. 4. Flexeril 10 mg every 8 hours p.r.n. muscle spasms, #30. 5. Increase multivitamin to b.i.d. 6. Tylenol 500 mg every 8 hours as needed. 7. Zofran ODT 4 mg every 6 hours p.r.n. nausea, #30. 8. To resume home medications: a. Bentyl 10 mg 4 times a day p.r.n. pain. b. Compazine 5 mg every 6 hours p.r.n. nausea. c. Lasix 80 mg oral twice daily, hold. d. Creon 36,000 International Units 2 capsules with meals and 1 tablet with snacks, hold. e. Spironolactone 100 mg oral twice daily, hold. DIET: Step 4 gastric bypass diet, 65 g of protein in 64 ounces of fluid. ACTIVITY: No lifting greater than 10 pounds for 6 weeks. Walk at least 6 times daily inside your home. Driving: Do not drive for 1 week and while on Dilaudid and Flexeril. Shower/bathing: May shower. No tub bathing or swimming for 6 weeks. DISCHARGE INSTRUCTIONS: Notify provider if any fever, pain, nausea, or vomiting. Keep site clean and dry. Wear abdominal binder for 6 weeks and then as tolerated. SPECIAL INSTRUCTIONS: 1. Use incentive spirometer 10 times every hour while awake for 1 week. 2. Take off Aquacel dressing on 02/08/2020. 3. Keep a food journal of protein and liquid intake and bring to clinic appointments. 4. Any questions or concerns, call the clinic during clinic hours and hospital after clinic hours. LABS AT TIME OF DISCHARGE: Hemoglobin 8.2, hematocrit 25.3. Sodium 136, potassium is 4, bilirubin 1.1, AST 153, ALT 135, alkaline phosphate 728, total protein 6.2, albumin is 3.0, and albumin-globulin ratio is 0.9.
[2020-02-04 11:12] VITALS: BP 101/67; PULSE 123
[2020-02-04] MEDS: Cyclobenzaprine 10 MG Tab PO PRN (11:25)
== END 2020-02-04 15:55 | disposition home or self-care (01) | DRG 221 ==
LOC: JP.ACU 09:26 → JP.MS 16:04
PROVIDERS: ADMIT Surgery; ATTEND Surgery
PROC: 0W993ZZ Drainage of Right Pleural Cavity, Percutaneous Approach (ICD-10-PCS; 2020-01-28)
PROC: 3E0336Z Introduction of Nutritional Substance into Peripheral Vein, Percutaneous Approach (ICD-10-PCS; 2020-01-28)
PROC: 0D1A0ZA Bypass Jejunum to Jejunum, Open Approach (ICD-10-PCS; 2020-01-28)
PROC: 0DB80ZZ Excision of Small Intestine, Open Approach (ICD-10-PCS; principal; 2020-01-29)
PROC: 0FB10ZX Excision of Right Lobe Liver, Open Approach, Diagnostic (ICD-10-PCS; 2020-01-29)
PROC: 02H633Z Insertion of Infusion Device into Right Atrium, Percutaneous Approach (ICD-10-PCS; 2020-01-29)
PROC: 0W9930Z Drainage of Right Pleural Cavity with Drainage Device, Percutaneous Approach (ICD-10-PCS; 2020-01-29)
PROC: 30233N1 Transfusion of Nonautologous Red Blood Cells into Peripheral Vein, Percutaneous Approach (ICD-10-PCS; 2020-02-01)
DX: K95.89 Other complications of other bariatric procedure (principal); E43 Unspecified severe protein-calorie malnutrition; K91.2 Postsurgical malabsorption, not elsewhere classified; J90 Pleural effusion, not elsewhere classified; R18.8 Other ascites; E87.6 Hypokalemia; K21.9 Gastro-esophageal reflux disease without esophagitis; K52.9 Noninfective gastroenteritis and colitis, unspecified; E53.8 Deficiency of other specified B group vitamins; Z11.59 Encounter for screening for other viral diseases; E50.9 Vitamin A deficiency, unspecified; E55.9 Vitamin D deficiency, unspecified; Z79.899 Other long term (current) drug therapy; Z68.21 Body mass index [BMI] 21.0-21.9, adult
CPT/HCPCS: 36415; 36430; 71045; 71045-26; 71260; 71260-26; 74240; 74240-26; 80053; 83735; 83880; 84100; 85025; 85027; 86850; 86900; 86901; 86920; 86922; 88112; 88305; 88307; 88313; 93005; 93010; 94640; 94762; A9270-GY; C9113; J0171; J0330; J0694; J1100; J1170; J1200; J1642; J1644; J2060; J2185; J2250; J2405; J2704; J2710; J2765; J2795; J2930; J3010; J3410; J3411; J3420; J3475; J3480; J3490; J7050; J7120; J7121; J7620-GY; P9016; P9047; Q9966; Q9967; U0002